=== PATIENT | male | born 1965 | race Caucasian/White ===

== ENCOUNTER 2017-04-12 10:23 | Emergency (ER) | payer OTHER, SELFPAY ==
[2017-04-12 10:50] VITALS: BP 137/86
--- NOTE | 2017-04-12 12:36 | Emergency Department Report ---
HPI - General Chief Complaint: Hyperglycemia Time Seen by Provider: 04/12/17 12:00 - HPI HPI: She is a 52-year-old male with a history of hypertension and hyperglycemia who takes medication for both. Patient presents here today stating that his blood sugars are not controlled. Patient is on on metformin 500 twice a day and insulin 30 units at night. Patient states that yesterday he took his blood glucose and it was about 300. Patient presents here today with a blood clots and blood glucose of 275. He denies chest pain, shortness of breath, nonbleeding tingling sensation of the extremities. ED Past Medical Hx - Past Medical History Hx Hypertension: Yes Hx Diabetes: Yes - Surgical History Additional Surgical History: left upper arm surgery - Social History Smoking Status: Never Smoker Substance Use Type: Alcohol - Medications Home Medications: Home Medications Medication Instructions Recorded Confirmed Last Taken Type Aspirin [Aspirin BABY CHEW TAB] 81 mg PO QDAY #30 tab.chew 12/14/15 Unknown Rx Insulin Glargine [Lantus VIAL] 10 units SUB-Q QHS 30 Days units 12/14/15 Unknown Rx Lisinopril [Zestril TAB] 5 mg PO QDAY #30 tablet 12/14/15 Unknown Rx Metoprolol [Lopressor TAB] 12.5 mg PO BID #60 tablet 12/14/15 Unknown Rx Pravastatin Sodium [Pravastatin] 40 mg PO QHS #30 tablet 12/14/15 Unknown Rx metFORMIN [Glucophage] 1,000 mg PO BID #60 tablet 12/14/15 Unknown Rx Metformin HCl 1,000 mg PO BID #40 tablet 04/12/17 Unknown Rx ED Review of Systems ROS: Stated complaint: BLOOD SUGAR HIGH Other details as noted in HPI Constitutional: denies: chills, fever Eyes: denies: eye pain, eye discharge, vision change ENT: denies: ear pain, throat pain Respiratory: denies: cough, shortness of breath, wheezing Cardiovascular: denies: chest pain, palpitations Endocrine: no symptoms reported Gastrointestinal: denies: abdominal pain, nausea, diarrhea Genitourinary: denies: urgency, dysuria Musculoskeletal: denies: back pain, joint swelling, arthralgia Skin: denies: rash, lesions Neurological: denies: headache, weakness, paresthesias Psychiatric: denies: anxiety, depression Hematological/Lymphatic: denies: easy bleeding, easy bruising Physical Exam - Physical Exam Vital Signs: Vital Signs 04/12/17 10:47 Temperature 98 F Pulse Rate 75 Respiratory 16 Rate Blood Pressure 137/86 O2 Sat by Pulse 96 Oximetry Physical Exam: GENERAL: Alert and oriented x3, no apparent distress, Normal Gait, atraumatic. HEAD: Head is normocephalic and a-traumatic. MOUTH:Mouth is well hydrated and without lesions. Tonsils nonerythematous or swollen, Uvula midline, Tongue not elevated. Mucous membranes are moist. Posterior pharynx clear, no exudate or lesions. Patent airways. LUNGS: Symetrical with respiration, No wheezing, no rales or crackles, CTAB. HEART: S1, S2 present, regular rate and rhythm without murmur, no rubs, no gallops. Non tender to palpation ABDOMEN: No organomegaly was noted,Positive bowel sounds, soft, and non- distended. . Nontender to palpation on all Quadrants, NO CVA EXTREMITIES/MUSCULOSKELETAL: No cyanosis, clubbing, rash, lesions or edema. Full ROM bilaterally. UE/LE Pulses 2+ bilaterally. LE and UE 5+ strength bilaterally, NEUROLOGIC: The patient is cooperative with no focal neurologic deficits. No loss of sensation in all extremities SKIN: Warm and dry, No lesions, No ulceration or induration present. ED Course Vital Signs 04/12/17 10:47 Temperature 98 F Pulse Rate 75 Respiratory 16 Rate Blood Pressure 137/86 O2 Sat by Pulse 96 Oximetry ED Medical Decision Making - Medical Decision Making 52-year-old male presents to uncontrolled blood glucose ED course: Fasting blood sugar is 275 in ED. Patient had no symptoms in the ED. Patient states that he is able to keep his blood pressure control with his medications but cannot keep hi blood glucose out of control. Patient states that he does monitor his diet. Discussed increasing her metformin dose to thousand milligrams twice a day. Discussed quick follow-up with the primary care physician and close monitoring of his blood glucose. I discussed with the patient to make sure he is monitoring his diet and exercising regularly which helps it also blood glucose reduction. I also discussed with patient to follow-up with his primary care physician. Patient states he is not having any symptoms in the ED today. Prior signs are normal He is in no acute or respiratory distress I discussed with the patient if he starts expressing any new symptoms or severely increasing blood glucose to return to the ED SAMANTHA Critical care attestation.: If time is entered above; I have spent that time in minutes in the direct care of this critically ill patient, excluding procedure time. ED Disposition Clinical Impression: Uncontrolled diabetes mellitus with hyperglycemia Qualifiers: Diabetes mellitus type: type 2 Diabetes mellitus termite technician insulin use: with [facility] use Qualified Code(s): E11.65 - Type 2 diabetes mellitus with hyperglycemia Disposition: TO HOME OR SELFCARE Is pt being admited?: No Does the pt Need Aspirin: No Condition: Stable Instructions: Diabetes Mellitus Type 2 in Adults (ED) Additional Instructions: Make sure to follow up with the primary care physician as discussed. Take your medications as you've been prescribed. Quantity of blood sugar 2-3 times daily and keep a log If you have any worsening symptoms or develop new symptoms please return to ED immediately. Prescriptions: Metformin HCl 1,000 mg PO BID #40 tablet Referrals: PRIMARY MD VENTURA [Primary Care Provider] - 3-5 Days ARABELLA HERR MD [Referring] - 3-5 Days [facility] [Provider Group] - 3-5 Days Forms: Work/School Release Form(ED) Time of Disposition: 12:39 Print Language: MACEDONIAN
== END 2017-04-12 13:15 | disposition home or self-care (01) ==
LOC: ED 10:23
DX: E11.65 Type 2 diabetes mellitus with hyperglycemia (principal); I10 Essential (primary) hypertension; Z79.4 Long term (current) use of insulin; Z79.84 Long term (current) use of oral hypoglycemic drugs
CPT/HCPCS: 82962; 99282

== ENCOUNTER 2017-10-29 11:16 | Inpatient (IN) | payer OTHER ==
[2017-10-29] MEDS ORDERED: NACL 0.9% 1000 ML 1,000 ML IV ONE (11:38)
[2017-10-29] MEDS ORDERED: ALUM-MAG HYDROX-SIMETH 200-200-20MG/5ML ONE (11:58)
[2017-10-29] MEDS ORDERED: LIDOCAINE VISCOUS 2% ONE (11:58)
[2017-10-29] MEDS: ALUM-MAG HYDROX-SIMETH 200-200-20MG/5ML PO ONE ×2 (12:03→14:03)
[2017-10-29] MEDS: LIDOCAINE VISCOUS 2% PO ONE ×2 (12:03→14:00)
[2017-10-29 12:19] LABS: Basophils % (Auto) 0.2 % (0.0-1.8); Hematocrit 46.9 % (35.5-45.6); Hemoglobin 16.6 gm/dl (11.8-15.2); Lymphocytes # (Auto) 1.4 K/mm3 (1.2-5.4); Lymphocytes % (Auto) 11.1 % (13.4-35.0); Mean Corpuscular HGB Conc 35 % (32-34); Mean Corpuscular Hemoglobin 31 pg (28-32); Mean Corpuscular Volume 86 fl (84-94); Monocytes # (Auto) 0.3 K/mm3 (0.0-0.8); Monocytes % (Auto) 2.7 % (0.0-7.3); Platelet Count 216 K/mm3 (140-440); Red Blood Count 5.42 M/mm3 (3.65-5.03); Red Cell Distribution Width 13.3 % (13.2-15.2)
[2017-10-29] MEDS ORDERED: PEPCID PO ONE (12:33)
[2017-10-29] MEDS ORDERED: TORADOL IM ONE (12:33)
[2017-10-29] MEDS ORDERED: BENTYL IM ONE (12:33)
[2017-10-29] MEDS ORDERED: ZOFRAN ODT PO ONE (12:33)
--- NOTE | 2017-10-29 12:36 | Emergency Department Report ---
Blank Doc - Documentation Documentation: Patient is a 52-year-old male who is complaining of epigastric pain. Patient states is some mild radiation to his back. He's had several episodes of nausea vomiting and had diarrhea last night the diarrhea has resolved. Patient denies any fever. Patient states this has not happened in the past. On focused physical exam patient has epigastric tenderness on palpation. Abdomen is otherwise soft with normal bowel sounds. The patient had laboratory studies drawn an ultrasound be done to rule out cholecystitis
[2017-10-29 12:44] LABS: Alanine Aminotransferase 134 units/L (7-56); Albumin 4.6 g/dL (3.9-5); BUN/Creatinine Ratio 20; Blood Urea Nitrogen 12 mg/dL (9-20); Calcium 10.4 mg/dL (8.4-10.2); Hemolysis Index 3; Lipase 18 units/L (13-60)
--- NOTE | 2017-10-29 13:39 | Emergency Department Report ---
ED Abdominal Pain HPI - General Chief Complaint: Abdominal Pain Stated Complaint: ABD PAIN Time Seen by Provider: 10/29/17 12:25 Source: patient, family Mode of arrival: Ambulatory Limitations: No Limitations - History of Present Illness Initial Comments: Patient is a 52-year-old male who is complaining of epigastric pain. Patient states is some mild radiation to his back. He's had several episodes of nausea vomiting and had diarrhea last night the diarrhea has resolved. Patient denies any fever. Patient states this has not happened in the past. No alleviating or exacerbating factors. No medication taken. MD Complaint: abdominal pain -: Last night Location: epigastric (midsternal chest pain) Radiation: back Migration to: no migration Severity: severe Severity scale (0 -10): 10 Consistency: constant (1 right anterior) Improves With: nothing Worsens With: vomiting Context: other (unsure) Associated Symptoms: nausea, vomiting Treatments Prior to Arrival: other - Related Data Previous Rx's Medication Instructions Recorded Last Taken Type Aspirin [Aspirin BABY CHEW TAB] 81 mg PO QDAY #30 tab.chew 12/14/15 Unknown Rx Insulin Glargine [Lantus VIAL] 10 units SUB-Q QHS 30 Days units 12/14/15 Unknown Rx Lisinopril [Zestril TAB] 5 mg PO QDAY #30 tablet 12/14/15 Unknown Rx Metoprolol [Lopressor TAB] 12.5 mg PO BID #60 tablet 12/14/15 Unknown Rx Pravastatin Sodium [Pravastatin] 40 mg PO QHS #30 tablet 12/14/15 Unknown Rx metFORMIN [Glucophage] 1,000 mg PO BID #60 tablet 12/14/15 Unknown Rx Metformin HCl 1,000 mg PO BID #40 tablet 04/12/17 Unknown Rx Allergies Allergy/AdvReac Type Severity Reaction Status Date / Time No Known Allergies Allergy Verified 04/12/17 10:47 ED Review of Systems ROS: Stated complaint: ABD PAIN Other details as noted in HPI Constitutional: denies: chills, fever Eyes: denies: eye pain, eye discharge ENT: denies: ear pain, throat pain, epistaxis, congestion Respiratory: denies: cough, shortness of breath, SOB with exertion, SOB at rest , stridor, wheezing Cardiovascular: denies: chest pain, palpitations, dyspnea on exertion, edema, syncope, paroxysmal nocturnal dyspnea Gastrointestinal: nausea, vomiting, diarrhea. denies: abdominal pain, hematemesis, hematochezia Genitourinary: denies: urgency, dysuria, frequency, hematuria Musculoskeletal: denies: back pain, joint swelling, arthralgia, myalgia Skin: denies: rash, lesions Neurological: denies: headache, weakness, numbness, paresthesias, confusion, abnormal gait, vertigo ED Past Medical Hx - Past Medical History Previous Medical History?: Yes Hx Hypertension: Yes Hx Diabetes: Yes - Surgical History Additional Surgical History: left upper arm surgery - Family History Family history: hypertension - Social History Smoking Status: Never Smoker Substance Use Type: Alcohol - Medications Home Medications: Home Medications Medication Instructions Recorded Confirmed Last Taken Type Aspirin [Aspirin BABY CHEW TAB] 81 mg PO QDAY #30 tab.chew 12/14/15 Unknown Rx Insulin Glargine [Lantus VIAL] 10 units SUB-Q QHS 30 Days units 12/14/15 Unknown Rx Lisinopril [Zestril TAB] 5 mg PO QDAY #30 tablet 12/14/15 Unknown Rx Metoprolol [Lopressor TAB] 12.5 mg PO BID #60 tablet 12/14/15 Unknown Rx Pravastatin Sodium [Pravastatin] 40 mg PO QHS #30 tablet 12/14/15 Unknown Rx metFORMIN [Glucophage] 1,000 mg PO BID #60 tablet 12/14/15 Unknown Rx Metformin HCl 1,000 mg PO BID #40 tablet 04/12/17 Unknown Rx ED Physical Exam - General Limitations: No Limitations General appearance: alert, obese, other (appear sick) - Head Head exam: Present: atraumatic, normocephalic, normal inspection - Eye Eye exam: Present: normal appearance, PERRL, EOMI Pupils: Present: normal accommodation - ENT ENT exam: Present: normal exam, normal orophraynx, mucous membranes moist, TM's normal bilaterally, normal external ear exam - Neck Neck exam: Present: normal inspection, full ROM. Absent: tenderness, lymphadenopathy - Respiratory Respiratory exam: Present: normal lung sounds bilaterally. Absent: respiratory distress, chest wall tenderness - Cardiovascular Cardiovascular Exam: Present: regular rate, normal rhythm, normal heart sounds. Absent: systolic murmur, diastolic murmur - GI/Abdominal GI/Abdominal exam: Present: soft, tenderness (epigastric area), guarding, normal bowel sounds. Absent: distended, rebound, rigid, organomegaly, mass, bruit, pulsatile mass, hernia - Extremities Exam Extremities exam: Present: normal inspection, full ROM, normal capillary refill. Absent: tenderness, pedal edema, joint swelling, calf tenderness - Back Exam Back exam: Present: normal inspection, full ROM, other (embolus without any difficulties). Absent: tenderness, CVA tenderness (R), CVA tenderness (L), muscle spasm, paraspinal tenderness, vertebral tenderness, rash noted - Neurological Exam Neurological exam: Present: alert, oriented X3, normal gait, reflexes normal. Absent: motor sensory deficit - Psychiatric Psychiatric exam: Present: normal affect, normal mood - Skin Skin exam: Present: warm, dry, intact, normal color. Absent: rash ED Course Vital Signs 10/29/17 10/29/17 11:33 14:02 Temperature 97.9 F Pulse Rate 87 Respiratory 20 18 Rate Blood Pressure 153/82 O2 Sat by Pulse 96 Oximetry - Reevaluation(s) Reevaluation #1: 10/29/17 13:14 Patient receive Maalox 30 mL, Bentyl 20 mg IM, Pepcid 40 mg by mouth, Toradol 60 mg IM, lidocaine 50 mils by mouth, Zofran 4 mg by mouth for epigastric pain in nausea. Normal saline IV fluids 1 L. Pain is better per patient. Abdominal assessment patient with minimal tenderness epigastric area. He denies any back pain or chest pain at present. EKG sinus rhythm at 66 bpm Reevaluation #2: 10/29/17 16:06 Patient with abnormal lab work to include bilirubin which is 4 and ultrasound complete abdomen shows patient with gallstones with high probability of, and bile duct blockage. I consulted Dr. Aguilar who is general surgery on-call today. I gave a report of CT and also patient lab reports and he wants hospitalist to admit patient. He gave me orders which were placed. Patient remained stable with minimal tenderness epigastric area. He is feeling better I updated on plans for admission due to abnormal labs and that his CT scan shows that he has gallbladder disease with possible blockage and he voiced understanding. Reevaluation #3: 10/29/17 16:[address] Dietrich as was the surgeon and Dr. Lynne also saw patient and plans to admit patient to surgical floor. Normal saline started at 125 mL an hour and patient is npo. [place] [facility]. She remained stable. He is alert and said he feels better. No nausea present. Started on Levaquin 750 mg IV. - Consultations Consultation #1: 10/29/17 16:53 Dietrich surgery and [place] [facility] ED Medical Decision Making - Lab Data Result diagrams: 10/29/17 12:07 10/29/17 12:07 Lab Results 10/29/17 10/29/17 Range/Units 12:07 12:07 WBC 12.4 H (4.5-11.0) K/mm3 RBC 5.42 H (3.65-5.03) M/mm3 Hgb 16.6 H (11.8-15.2) gm/dl Hct 46.9 H (35.5-45.6) % MCV 86 (84-94) fl MCH 31 (28-32) pg MCHC 35 H (32-34) % RDW 13.3 (13.2-15.2) % Plt Count 216 (140-440) K/mm3 Lymph % (Auto) 11.1 L (13.4-35.0) % Terrell % (Auto) 2.7 (0.0-7.3) % Eos % (Auto) 0.0 (0.0-4.3) % Baso % (Auto) 0.2 (0.0-1.8) % Lymph # 1.4 (1.2-5.4) K/mm3 Terrell # 0.3 (0.0-0.8) K/mm3 Eos # 0.0 (0.0-0.4) K/mm3 Baso # 0.0 (0.0-0.1) K/mm3 Seg Neutrophils % 86.0 H (40.0-70.0) % Seg Neutrophils # 10.7 H (1.8-7.7) K/mm3 Sodium 136 L (137-145) mmol/L Potassium 4.1 (3.6-5.0) mmol/L Chloride 91.9 L (98-107) mmol/L Carbon Dioxide 29 (22-30) mmol/L Anion Gap 19 mmol/L BUN 12 (9-20) mg/dL Creatinine 0.6 L (0.8-1.5) mg/dL Estimated GFR > 60 ml/min BUN/Creatinine Ratio 20 % Glucose 330 H (75-100) mg/dL Calcium 10.4 H (8.4-10.2) mg/dL Total Bilirubin 4.00 H (0.1-1.2) mg/dL AST 147 H (5-40) units/L ALT 134 H (7-56) units/L Alkaline Phosphatase 82 (35-129) units/L Troponin T < 0.010 (0.00-0.029) ng/mL Total Protein 8.3 H (6.3-8.2) g/dL Albumin 4.6 (3.9-5) g/dL Albumin/Globulin Ratio 1.2 % Lipase 18 (13-60) units/L - Radiology Data Radiology results: report reviewed Ultrasound abdomen complete dictated by radiologist's report reviewed by myself. Please see details below. Patient: PRESTON MODI MR#: [id number] : 1965 Acct:[id number] Age/Sex: 52 / M ADM Date: 10/29/17 Loc: ED Attending Dr: Ordering Physician: SHERRI DUFF MD Date of Service: 10/29/17 Procedure(s): US abdomen complete Accession Number(s): [id number] cc: SHERRI DUFF MD FINAL REPORT EXAM: US ABDOMEN COMPLETE HISTORY: epigastric pain with NV TECHNIQUE: Sonography of the abdomen performed. PRIORS: None. FINDINGS: The liver is echogenic in attenuating which is suspicious for fatty infiltration. The proximal CBD is borderline enlarged for age measuring 6 mm. There is no intrahepatic biliary dilatation seen. There are multiple echogenicities in the gallbladder with posterior shadowing. This is consistent with cholelithiasis. There is no wall thickening or pericholecystic fluid seen. Pancreas is mostly obscured by bowel gas. There is limited visualization of the spleen and left kidney due to patient's limited mobility. Grossly there is no splenomegaly or hydronephrosis. Right kidney measures 10.9 cm length. Left kidney measures 13.8 cm. IMPRESSION: Somewhat limited exam due to patient's immobility, pain and bowel gas. There is cholelithiasis. Proximal CBD is borderline size for patient's age. Clinically correlate to exclude biliary obstruction. Suspect fatty infiltration of the liver. Transcribed By: ESPERANZA Dictated By: ALVINA TRENT MD Electronically Authenticated By: ALVINA TRENT MD Signed Date/Time: 10/29/171422 DD/ 22 TD/TT: 10/29/171422 - Medical Decision Making This is a 52-year-old male here reports that he is having nausea vomiting diarrhea and also upper abdominal pain started last night. Diarrhea has resolved last night. But still with abdominal pain and nausea. Patient was screened by Dr. Duff and orders placed. Labs: CBC and CMP with abnormal values to include bilirubin at 4. Troponin. Liver enzymes are elevated, lipase is normal. White count slightly elevated with slight shift to the left. PT/PTT stable. Please refer to laboratory section for details on laboratory results. Diagnostics: Ultrasound abdomen complete shows: cholelithiasis. Proximal CBD is borderline size for patient's age. Clinically correlate to exclude biliary obstruction. Patient's bilirubin is elevated, abdomen tender to palpate epigastric area and patient looks sick. Referred to radiology section for details on ultrasound report. Assessment/plan 1: Abdominal pain, epigastric. 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 2: Atypical chest pain-EKG is stable and troponin is normal. Better 3-nausea vomiting and diarrhea-better. Patient had no diarrhea since last night but he was given Zofran 4 mg by mouth for relief of nausea. She received normal saline 1 L. Patient started on IV fluid normal saline 1 25 mL an hour. 4: Gallstones with high suspicion for, bile duct blockage-patient was tenderness to palpate epigastric area, he looks ill with elevated liver enzymes and elevated bilirubin. Ultrasound reports noted. Please see above reported. Patient started on Levaquin 750 mg IV per general surgeon. [place] nothing by mouth for surgery tomorrow I collaborated with Dr. Duff and it was decided by general surgeon Dr. Dietrich the patient will be admitted, Dr. castro accepted admission and patient aware of admission plans and updated on laboratory results and ultrasound results. He is stable and is in no pain at present. Nausea has relieved that he has not any diarrhea since he has been in emergency room. Patient is awaiting transfer to surgical floor. . - Differential Diagnosis GBD,Pancreatitis, liver DZ, abdominal mass, PUD, gastritis Critical care attestation.: If time is entered above; I have spent that time in minutes in the direct care of this critically ill patient, excluding procedure time. ED Disposition Clinical Impression: Atypical chest pain, Nausea vomiting and diarrhea Cholelithiases Qualifiers: Cholelithiasis location: gallbladder and bile duct Cholecystitis presence: with cholecystitis Cholecystitis acuity: unspecified acuity Biliary obstruction : with biliary obstruction Qualified Code(s): K80.61 - Calculus of gallbladder and bile duct with cholecystitis, unspecified, with obstruction Abdominal pain Qualifiers: Abdominal location: epigastric Qualified Code(s): R10.13 - Epigastric pain Disposition: OP ADMIT IP TO THIS HOSP Is pt being admited?: Yes Does the pt Need Aspirin: No Condition: Stable
[2017-10-29] MEDS ORDERED: NACL 0.9% 1000 ML 1,000 ML ONE ×2 (13:53→17:26)
--- NOTE | 2017-10-29 14:25 | Ultrasound Report ---
FINAL REPORT EXAM: US ABDOMEN COMPLETE HISTORY: epigastric pain with NV TECHNIQUE: Sonography of the abdomen performed. PRIORS: None. FINDINGS: The liver is echogenic in attenuating which is suspicious for fatty infiltration. The proximal CBD is borderline enlarged for age measuring 6 mm. There is no intrahepatic biliary dilatation seen. There are multiple echogenicities in the gallbladder with posterior shadowing. This is consistent with cholelithiasis. There is no wall thickening or pericholecystic fluid seen. Pancreas is mostly obscured by bowel gas. There is limited visualization of the spleen and left kidney due to patient's limited mobility. Grossly there is no splenomegaly or hydronephrosis. Right kidney measures 10.9 cm length. Left kidney measures 13.8 cm. IMPRESSION: Somewhat limited exam due to patient's immobility, pain and bowel gas. There is cholelithiasis. Proximal CBD is borderline size for patient's age. Clinically correlate to exclude biliary obstruction. Suspect fatty infiltration of the liver. .
[2017-10-29] MEDS ORDERED: NACL 0.9% 1000 ML 1,000 ML IV SCH (15:00)
[2017-10-29 15:40] LABS: INR 0.93 (0.87-1.13); Partial Thromboplastin Time 26.1 Sec. (24.2-36.6)
[2017-10-29] MEDS: LEVAQUIN 750MG/150ML 750 MG/150 ML BAG IV SCH ×2 (15:49→23:23)
--- NOTE | 2017-10-29 16:19 | Progress Note ---
Assessment and Plan Full consult dictated 52 y/o obese male. epig pain vomiting GB + stones. borderline dilated CBD 6 mm T [place] - 4.0 imp r/o cholecystitis r/o choledocolitihiasis with CBD obst. rec keep npo IV Levaquin MRCP GI eval willl follow. Selected Entries 10/29/17 10/29/17 11:33 14:02 Temperature 97.9 F Pulse Rate 87 Respiratory 18 Rate Blood Pressure 153/82 Laboratory Tests 10/29/17 10/29/17 10/29/17 12:07 12:07 15:16 WBC 12.4 H Hgb 16.6 H Hct 46.9 H PT 13.0 INR 0.93 APTT 26.1 Sodium 136 L Potassium 4.1 Chloride 91.9 L Glucose 330 H Calcium 10.4 H Total Bilirubin 4.00 H AST 147 H ALT 134 H Lipase 18 Objective Vital Signs - 12hr 10/29/17 10/29/17 11:33 14:02 Temperature 97.9 F Pulse Rate 87 Respiratory 20 18 Rate Blood Pressure 153/82 O2 Sat by Pulse 96 Oximetry - Labs 10/29/17 12:07 10/29/17 12:07 Diabetes panel 10/29/17 Range/Units 12:07 Sodium 136 L (137-145) mmol/L Potassium 4.1 (3.6-5.0) mmol/L Chloride 91.9 L (98-107) mmol/L Carbon Dioxide 29 (22-30) mmol/L BUN 12 (9-20) mg/dL Creatinine 0.6 L (0.8-1.5) mg/dL Glucose 330 H (75-100) mg/dL Calcium 10.4 H (8.4-10.2) mg/dL AST 147 H (5-40) units/L ALT 134 H (7-56) units/L Alkaline Phosphatase 82 (35-129) units/L Total Protein 8.3 H (6.3-8.2) g/dL Albumin 4.6 (3.9-5) g/dL Calcium panel 10/29/17 Range/Units 12:07 Calcium 10.4 H (8.4-10.2) mg/dL Albumin 4.6 (3.9-5) g/dL Pituitary panel 10/29/17 Range/Units 12:07 Sodium 136 L (137-145) mmol/L Potassium 4.1 (3.6-5.0) mmol/L Chloride 91.9 L (98-107) mmol/L Carbon Dioxide 29 (22-30) mmol/L BUN 12 (9-20) mg/dL Creatinine 0.6 L (0.8-1.5) mg/dL Glucose 330 H (75-100) mg/dL Calcium 10.4 H (8.4-10.2) mg/dL Adrenal panel 10/29/17 Range/Units 12:07 Sodium 136 L (137-145) mmol/L Potassium 4.1 (3.6-5.0) mmol/L Chloride 91.9 L (98-107) mmol/L Carbon Dioxide 29 (22-30) mmol/L BUN 12 (9-20) mg/dL Creatinine 0.6 L (0.8-1.5) mg/dL Glucose 330 H (75-100) mg/dL Calcium 10.4 H (8.4-10.2) mg/dL Total Bilirubin 4.00 H (0.1-1.2) mg/dL AST 147 H (5-40) units/L ALT 134 H (7-56) units/L Alkaline Phosphatase 82 (35-129) units/L Total Protein 8.3 H (6.3-8.2) g/dL Albumin 4.6 (3.9-5) g/dL
--- NOTE | 2017-10-29 21:06 | History and Physical Report ---
History of Present Illness Date of examination: 10/29/17 Date of admission: 10/29/17 16:01 Chief complaint: Chief complaint: Epigastric and right upper quadrant pain History of present illness: History of Present Illness: 52-year-old male with history of insulin-dependent diabetes hypertension and hyperlipidemia comes in for epigastric pain with radiation to the back. Has been having nausea and vomiting for the last 3 days. Pain is about 10 on a scale of 1-10. Sharp in nature. Exacerbated by eating. Relieved by not eating. No fever or chills. Pain radiating to the back. Never had pain in the epigastric region before these 3 days. Past Medical History Previous Medical History?: Yes Hx Hypertension: Yes Hx Diabetes: Yes HLD Surgical History Additional Surgical History: left upper arm surgery Family History Family history: hypertension Social History Smoking Status: Never Smoker Substance Use Type: Alcohol - Medications Home Medications: Home Medications Medication Instructions Recorded Confirmed Last Taken Type Aspirin [Aspirin BABY CHEW TAB] 81 mg PO QDAY #30 tab.chew 12/14/15 Unknown Rx Insulin Glargine [Lantus VIAL] 10 units SUB-Q QHS 30 Days units 12/14/15 Unknown Rx Lisinopril [Zestril TAB] 5 mg PO QDAY #30 tablet 12/14/15 Unknown Rx Metoprolol [Lopressor TAB] 12.5 mg PO BID #60 tablet 12/14/15 Unknown Rx Pravastatin Sodium [Pravastatin] 40 mg PO QHS #30 tablet 12/14/15 Unknown Rx metFORMIN [Glucophage] 1,000 mg PO BID #60 tablet 12/14/15 Unknown Rx Metformin HCl 1,000 mg PO BID #40 tablet 04/12/17 Unknown Rx Review of Systems ROS: Stated complaint: ABD PAIN Other details as noted in HPI Constitutional: denies: chills, fever Eyes: denies: eye pain, eye discharge ENT: denies: ear pain, throat pain, epistaxis, congestion Respiratory: denies: cough, shortness of breath, SOB with exertion, SOB at rest , stridor, wheezing Cardiovascular: denies: chest pain, palpitations, dyspnea on exertion, edema, syncope, paroxysmal nocturnal dyspnea Gastrointestinal: nausea, vomiting, diarrhea. denies: abdominal pain, hematemesis, hematochezia Genitourinary: denies: urgency, dysuria, frequency, hematuria Musculoskeletal: denies: back pain, joint swelling, arthralgia, myalgia Skin: denies: rash, lesions Neurological: denies: headache, weakness, numbness, paresthesias, confusion, abnormal gait, vertigo 14 point review of systems done--otherwise negative Medications and Allergies Allergies Allergy/AdvReac Type Severity Reaction Status Date / Time No Known Allergies Allergy Verified 04/12/17 10:47 Home Medications Medication Instructions Recorded Confirmed Last Taken Type Aspirin [Aspirin BABY CHEW TAB] 81 mg PO QDAY #30 tab.chew 12/14/15 Unknown Rx Insulin Glargine [Lantus VIAL] 10 units SUB-Q QHS 30 Days units 12/14/15 Unknown Rx Lisinopril [Zestril TAB] 5 mg PO QDAY #30 tablet 12/14/15 Unknown Rx Metoprolol [Lopressor TAB] 12.5 mg PO BID #60 tablet 12/14/15 Unknown Rx Pravastatin Sodium [Pravastatin] 40 mg PO QHS #30 tablet 12/14/15 Unknown Rx metFORMIN [Glucophage] 1,000 mg PO BID #60 tablet 12/14/15 Unknown Rx Metformin HCl 1,000 mg PO BID #40 tablet 04/12/17 Unknown Rx Active Meds: Active Medications Levofloxacin/Dextrose (Levaquin 750mg/150ml) 750 mg in 150 mls @ 100 mls/hr IV Q24HR STACEY; Protocol Last Admin: 10/29/17 15:49 Dose: 100 mls/hr Sodium Chloride (Nacl 0.9% 1000 Ml) 1,000 mls @ 125 mls/hr IV DIRECT STACEY Last Admin: 10/29/17 17:31 Dose: 125 mls/hr Exam - Physical Exam Narrative exam: Lying in chair in moderate discomfort - Constitutional Vitals: Temp Pulse Resp BP Pulse Ox 97.9 F 89 18 152/77 98 10/29/17 11:33 10/29/17 16:56 10/29/17 17:35 10/29/17 16:56 10/29/17 17:35 General appearance: Present: mild distress, well-nourished - EENT Eyes: Present: PERRL ENT: hearing intact, clear oral mucosa - Neck Neck: Present: supple, normal ROM - Respiratory Respiratory effort: normal Respiratory: bilateral: CTA - Cardiovascular Heart rate: 66 Rhythm: regular Heart Sounds: Present: S1 & S2. Absent: rub, click - Extremities Extremities: pulses symmetrical, No edema Peripheral Pulses: within normal limits - Abdominal General gastrointestinal: Present: soft, non-tender, non-distended, normal bowel sounds Localized gastrointestinal: tender: RUQ, epigastric periumbilical, guarding: RUQ , epigastric periumbilical Male genitourinary: Present: normal - Rectal Rectal Exam: deferred - Integumentary Integumentary: Present: clear, warm, dry - Musculoskeletal Musculoskeletal: gait normal, strength equal bilaterally - Psychiatric Psychiatric: appropriate mood/affect, intact judgment & insight - Neurologic Neurologic: CNII-XII intact, moves all extremities - Allied Health Allied health notes reviewed: nursing, case management Results - Labs CBC & Chem 7: 10/29/17 12:07 10/29/17 12:07 Labs: Laboratory Last Values WBC 12.4 K/mm3 (4.5-11.0) H 10/29/17 12:07 RBC 5.42 M/mm3 (3.65-5.03) H 10/29/17 12:07 Hgb 16.6 gm/dl (11.8-15.2) H 10/29/17 12:07 Hct 46.9 % (35.5-45.6) H 10/29/17 12:07 MCV 86 fl (84-94) 10/29/17 12:07 MCH 31 pg (28-32) 10/29/17 12:07 MCHC 35 % (32-34) H 10/29/17 12:07 RDW 13.3 % (13.2-15.2) 10/29/17 12:07 Plt Count 216 K/mm3 (140-440) 10/29/17 12:07 Lymph % (Auto) 11.1 % (13.4-35.0) L 10/29/17 12:07 Yell % (Auto) 2.7 % (0.0-7.3) 10/29/17 12:07 Eos % (Auto) 0.0 % (0.0-4.3) 10/29/17 12:07 Baso % (Auto) 0.2 % (0.0-1.8) 10/29/17 12:07 Lymph # 1.4 K/mm3 (1.2-5.4) 10/29/17 12:07 Yell # 0.3 K/mm3 (0.0-0.8) 10/29/17 12:07 Eos # 0.0 K/mm3 (0.0-0.4) 10/29/17 12:07 Baso # 0.0 K/mm3 (0.0-0.1) 10/29/17 12:07 Seg Neutrophils % 86.0 % (40.0-70.0) H 10/29/17 12:07 Seg Neutrophils # 10.7 K/mm3 (1.8-7.7) H 10/29/17 12:07 PT 13.0 Sec. (12.2-14.9) 10/29/17 15:16 INR 0.93 (0.87-1.13) 10/29/17 15:16 APTT 26.1 Sec. (24.2-36.6) 10/29/17 15:16 Sodium 136 mmol/L (137-145) L 10/29/17 12:07 Potassium 4.1 mmol/L (3.6-5.0) 10/29/17 12:07 Chloride 91.9 mmol/L (98-107) L 10/29/17 12:07 Carbon Dioxide 29 mmol/L (22-30) 10/29/17 12:07 Anion Gap 19 mmol/L 10/29/17 12:07 BUN 12 mg/dL (9-20) 10/29/17 12:07 Creatinine 0.6 mg/dL (0.8-1.5) L 10/29/17 12:07 Estimated GFR > 60 ml/min 10/29/17 12:07 BUN/Creatinine Ratio 20 % 10/29/17 12:07 Glucose 330 mg/dL (75-100) H 10/29/17 12:07 Calcium 10.4 mg/dL (8.4-10.2) H 10/29/17 12:07 Total Bilirubin 4.00 mg/dL (0.1-1.2) H 10/29/17 12:07 AST 147 units/L (5-40) H 10/29/17 12:07 ALT 134 units/L (7-56) H 10/29/17 12:07 Alkaline Phosphatase 82 units/L (35-129) 10/29/17 12:07 Troponin T < 0.010 ng/mL (0.00-0.029) 10/29/17 12:07 Total Protein 8.3 g/dL (6.3-8.2) H 10/29/17 12:07 Albumin 4.6 g/dL (3.9-5) 10/29/17 12:07 Albumin/Globulin Ratio 1.2 % 10/29/17 12:07 Lipase 18 units/L (13-60) 10/29/17 12:07 Short CBC 10/29/17 Range/Units 12:07 WBC 12.4 H (4.5-11.0) K/mm3 Hgb 16.6 H (11.8-15.2) gm/dl Hct 46.9 H (35.5-45.6) % Plt Count 216 (140-440) K/mm3 BMP 10/29/17 12:07 Sodium 136 L Potassium 4.1 Chloride 91.9 L Carbon Dioxide 29 BUN 12 Creatinine 0.6 L Glucose 330 H Calcium 10.4 H Cardiac Enzymes 10/29/17 Range/Units 12:07 Troponin T < 0.010 (0.00-0.029) ng/mL Liver Function 10/29/17 Range/Units 12:07 Total Bilirubin 4.00 H (0.1-1.2) mg/dL AST 147 H (5-40) units/L ALT 134 H (7-56) units/L Alkaline Phosphatase 82 (35-129) units/L Albumin 4.6 (3.9-5) g/dL - Imaging and Cardiology EKG: report reviewed (normal sinus rhythm heart rate of 66/m) Imaging and Cardiology: Ultrasound abdomen IMPRESSION: Somewhat limited exam due to patient's immobility, pain and bowel gas. There is cholelithiasis. Proximal CBD is borderline size for patient's age. Clinically correlate to exclude biliary obstruction. Suspect fatty infiltration of the liver. . Assessment and Plan Advance Directives: Yes VTE prophylaxis?: Chemical Plan of care discussed with patient/family: Yes - Patient Problems (1) Cholelithiases Current Visit: Yes Status: Acute Qualifiers: Cholelithiasis location: gallbladder and bile duct Cholecystitis presence: with cholecystitis Cholecystitis acuity: unspecified acuity Biliary obstruction: with biliary obstruction Qualified Code(s): K80.61 - Calculus of gallbladder and bile duct with cholecystitis, unspecified, with obstruction Plan to address problem: There maybe CBD obstruction Patient has a high bilirubin and transaminitis We will get MRCP Surgery consult requested IV Zosyn started (2) Transaminitis Current Visit: Yes Status: Acute Plan to address problem: Possible hepatitis or Obstruction secondary to cholelithiasis (3) T2DM (type 2 diabetes mellitus) Current Visit: Yes Status: Chronic Qualifiers: Diabetes mellitus intermediate manager insulin use: without half-way use Plan to address problem: Accu-Cheks before meals and at bedtime and coverage Check A1c (4) Hypertension Current Visit: No Status: Chronic Qualifiers: Hypertension type: essential hypertension Qualified Code(s): I10 - Essential (primary) hypertension Plan to address problem: Catapres patch initiated (5) Hyperlipidemia Current Visit: Yes Status: Chronic Qualifiers: Hyperlipidemia type: mixed hyperlipidemia Qualified Code(s): E78.2 - Mixed hyperlipidemia Plan to address problem: Hold statins for now (6) DVT prophylaxis Current Visit: Yes Status: Acute Plan to address problem: Lovenox started GI prophylaxis initiated
[2017-10-29] MEDS ORDERED: DILAUDID IV PRN (21:24)
[2017-10-29] MEDS ORDERED: SODIUM CHLORIDE FLUSH SYRINGE 10 ML IV PRN (21:24)
[2017-10-29] MEDS ORDERED: TYLENOL PO PRN (21:24)
[2017-10-29] MEDS ORDERED: MORPHINE IV PRN (21:24)
[2017-10-29] MEDS ORDERED: ZOFRAN IV PRN (21:24)
[2017-10-29] MEDS ORDERED: CATAPRES-TTS PATCH TD SCH (22:00)
[2017-10-29] MEDS: ZOSYN/NS 4.5GM/100ML 4.5 GM/100 ML VIAL IV SCH (22:05)
[2017-10-29] MEDS: PEPCID IV SCH (22:10)
[2017-10-29] MEDS: SODIUM CHLORIDE FLUSH SYRINGE 10 ML IV SCH (22:13)
[2017-10-29] MEDS: LOVENOX SUB-Q SCH (23:25)
[2017-10-29] MEDS: NACL 0.9% 1000 ML 1,000 ML IV SCH (23:29)
[2017-10-30] MEDS: NACL 0.9% 1000 ML 1,000 ML IV SCH ×3 (01:27→21:10)
[2017-10-30] MEDS: HumaLOG SUB-Q SCH ×4 (01:27→16:30)
--- NOTE | 2017-10-30 02:11 | Consultation ---
REASON FOR CONSULTATION: 1. Rule out cholecystitis. 2. Rule out choledocholithiasis. HISTORY OF PRESENT ILLNESS: The patient is a 52-year-old obese gentleman, who was admitted through the Emergency Room with a chief complaint of epigastric abdominal pain accompanied by nausea and vomiting. PAST MEDICAL HISTORY: Pertinent for diabetes and hypertension. PAST SURGICAL HISTORY: Negative. ALLERGIES: No known allergies. MEDICATIONS: Include metformin and " FAMILY HISTORY: Negative. SOCIAL HISTORY: Moderate ethanol intake. Denies any smoking. REVIEW OF SYSTEMS: Noncontributory. PHYSICAL EXAMINATION: GENERAL: At this time reveals the patient to be awake, alert, and cooperative, in moderate discomfort, but no acute distress. VITAL SIGNS: Show him to be afebrile with a temperature of 97.9, blood pressure is 153/82, pulse of 87, and respirations of 20. HEENT: Pupils are equal and reactive to light and accommodation. Sclerae shows 1+ icterus. ABDOMEN: Examination of the abdomen reveals it to be obese. There is epigastric tenderness and also slight right upper quadrant tenderness. Bowel sounds are hypoactive. LABORATORY DATA: Lab work at present includes a CBC, which shows a white count of 12.4, H and H of 16 and 46. PT, INR and PTT are within normal limit. Electrolytes are also within normal limits. Glucose is 330. LFTs were elevated including an AST of 147, ALT of 134, alkaline phosphatase of 82. Total bilirubin is elevated at 4.0. Lipase is normal at 18. A gallbladder ultrasound has been performed, which reveals some gallstones. Also, there is a borderline dilated common bile duct of 6 mm. No gallbladder wall thickening or pericholecystic fluid was seen around the gallbladder. IMPRESSION: 1. At this time is that of an obese, diabetic, hypertensive male with positive cholelithiasis. Rule out cholecystitis. 2. Rule out choledocholithiasis with common bile duct obstruction. RECOMMENDATIONS: At this time is to keep the patient n.p.o. on IV fluid hydration. Start IV Levaquin. Also, we will order MRCP as well as recommend GI evaluation, possible ERCP pending MRCP findings. We will follow closely with you. Thank you very much for consultation. JOB# [id number] FP/NTS
[2017-10-30] MEDS: ZOSYN/NS 4.5GM/100ML 4.5 GM/100 ML VIAL IV SCH ×3 (05:16→21:09)
[2017-10-30 08:08] LABS: Basophils % (Auto) 0.3 % (0.0-1.8); Eosinophils % (Auto) 0.3 % (0.0-4.3); Hemoglobin 14.3 gm/dl (11.8-15.2); Lymphocytes # (Auto) 1.5 K/mm3 (1.2-5.4); Lymphocytes % (Auto) 23.2 % (13.4-35.0); Mean Corpuscular HGB Conc 36 % (32-34); Mean Corpuscular Hemoglobin 31 pg (28-32); Mean Corpuscular Volume 87 fl (84-94); Monocytes # (Auto) 0.5 K/mm3 (0.0-0.8); Monocytes % (Auto) 7.6 % (0.0-7.3); Platelet Count 176 K/mm3 (140-440); Red Blood Count 4.63 M/mm3 (3.65-5.03); Red Cell Distribution Width 13.5 % (13.2-15.2)
[2017-10-30 09:05] LABS: Alanine Aminotransferase 313 units/L (7-56); Albumin 3.8 g/dL (3.9-5); BUN/Creatinine Ratio 18; Blood Urea Nitrogen 11 mg/dL (9-20); Calcium 8.6 mg/dL (8.4-10.2); Hemolysis Index 2
[2017-10-30 09:38] LABS: Bilirubin,Urine NEG (Negative); Blood,Urine NEG (Negative); Color,Urine Amber (Yellow); Mucus,Urine FEW /HPF; Protein,Urine <15 mg/dL mg/dL (Negative); RBC,Urine < 1.0 /HPF (0.0-6.0); Urobilinogen,Urine < 2.0 mg/dL (<2.0)
[2017-10-30] MEDS: PEPCID IV SCH ×2 (10:19→21:10)
[2017-10-30] MEDS: SODIUM CHLORIDE FLUSH SYRINGE 10 ML IV SCH ×2 (10:20→21:11)
[2017-10-30] MEDS ORDERED: PNEUMOVAX 23 IM ONE (12:00)
--- NOTE | 2017-10-30 13:07 | Magnetic Resonance Report ---
MRI ABDOMEN WITH MRCP: 10/30/17 CLINICAL: Epigastric pain with nausea and vomiting. COMPARISON:Ultrasound abdomen 10/29/17 TECHNIQUE: Axial T1 in phase and opposed phase, coronal and axial T2 and axial T2 fat sat sequences plus thin and thick slab MRCP sequences on a 1.5 Miriam magnet. FINDINGS: The liver is normal size with normal contour. Mild diffuse heterogeneous signal dropout on opposed phase imaging. No liver mass or nodularity. The gallbladder is partially contracted and contains numerous calculi of varying sizes. The largest measures 1.5 cm. The color wall is thickened and measures 5 mm maximum. No pericholecystic fluid. Normal intrahepatic and extrahepatic bile ducts. The common hepatic duct measures 4 mm diameter. The MRCP sequences are normal with a normal common bile that and pancreatic duct. The pancreas is normal size with normal signal. No pancreatic mass, fluid collection or inflammatory changes. Normal stomach and duodenum. The spleen is enlarged and measures 15.2 cm in length. Normal splenic signal and no splenic mass or cyst. Normal adrenal glands. The kidneys are normal size with normal nondilated renal collecting systems and ureters. The right kidney measures 11.3 cm in length and the left kidney measures 12.7 cm in length. Mild bilateral nonspecific air nephric fluid and stranding. No ascites. The abdominal aorta and inferior vena cava are normal. Imaged portions of small bowel and colon are normal. No mass or lymphadenopathy. The bones and soft tissues are normal. IMPRESSION: 1. Cholelithiasis in a partially contracted gallbladder with mild nonspecific wall thickening. Criteria for acute cholecystitis are not met. 2. Normal biliary tract with no evidence of choledocholithiasis or obstruction. 3. Mild to moderate hepatic steatosis and no signs of hepatic cirrhosis. 4. Mild splenomegaly.
--- NOTE | 2017-10-30 13:09 | Progress Note ---
Assessment and Plan Assessment and plan: [facility] [employer] Used Patient is a 52-year-old man with a history of insulin-dependent diabetes mellitus, hypertension and hyperlipidemia who comes in for epigastric abd pains * Ultrasound abdomen IMPRESSION: Somewhat limited exam due to patient's immobility, pain and bowel gas. There is cholelithiasis. Proximal CBD is borderline size for patient's age. Clinically correlate to exclude biliary obstruction. Suspect fatty infiltration of the liver. Cholelithiasis There maybe CBD obstruction Patient has a high bilirubin and transaminitis We will get MRCP Surgery consult requested IV Zosyn started Transaminitis Possible hepatitis or Obstruction secondary to cholelithiasis T2DM (type 2 diabetes mellitus) Accu-Cheks before meals and at bedtime and coverage Check A1c Hypertension Catapres patch initiated Hyperlipidemia Hold statins for now DVT prophylaxis Lovenox started GI prophylaxis initiated History Interval history: Patient was seen and examined. Follow-up on current diagnosis of abdominal pains. Overnight uneventful. Patient denies any chest pain, shortness breath, nausea/vomiting or severe headaches. Imaging, nursing note, chart, labs and old chart reviewed. Discussed with patient. Hospitalist Physical - Physical exam Narrative exam: GEN: WDWN, NAD, Awake, Alert, Orientated x 3, bmi 37.7 HEENT: NCAT, EOMI, PERRL, OP Clear NECK: supple, no adenopathy, no thyromegaly, no JVD CVS/HEART: RRR, normal S1S2, pulses present bilaterally CHEST/LUNGS: CTA B, Symmetrical chest expansion, good air entry bilaterally GI/Abdomen: soft, nondistended, very mild epigastric tenderness, good bowel sounds, no guarding or rebound /Bladder: no suprapubic tenderness, no CVA or paraspinal tenderness EXT/Skin: no c/c/e, no obvious rash MSK: FROM x 4 Neuro: CN 2-12 grossly intact, no new focal deficits Psych: calm - Constitutional Vitals: Temp Pulse Resp BP Pulse Ox 98.4 F 63 20 123/74 91 10/30/17 11:47 10/30/17 11:47 10/30/17 11:47 10/30/17 11:47 10/30/17 11:47 General appearance: Present: well-nourished. Absent: mild distress Results - Labs CBC & Chem 7: 10/30/17 07:25 10/30/17 07:25 Labs: Laboratory Last Values WBC 6.4 K/mm3 (4.5-11.0) 10/30/17 07:25 RBC 4.63 M/mm3 (3.65-5.03) 10/30/17 07:25 Hgb 14.3 gm/dl (11.8-15.2) 10/30/17 07:25 Hct 40.0 % (35.5-45.6) D 10/30/17 07:25 MCV 87 fl (84-94) 10/30/17 07:25 MCH 31 pg (28-32) 10/30/17 07:25 MCHC 36 % (32-34) H 10/30/17 07:25 RDW 13.5 % (13.2-15.2) 10/30/17 07:25 Plt Count 176 K/mm3 (140-440) 10/30/17 07:25 Lymph % (Auto) 23.2 % (13.4-35.0) 10/30/17 07:25 [place] % (Auto) 7.6 % (0.0-7.3) H 10/30/17 07:25 Eos % (Auto) 0.3 % (0.0-4.3) 10/30/17 07:25 Baso % (Auto) 0.3 % (0.0-1.8) 10/30/17 07:25 Lymph # 1.5 K/mm3 (1.2-5.4) 10/30/17 07:25 [place] # 0.5 K/mm3 (0.0-0.8) 10/30/17 07:25 Eos # 0.0 K/mm3 (0.0-0.4) 10/30/17 07:25 Baso # 0.0 K/mm3 (0.0-0.1) 10/30/17 07:25 Seg Neutrophils % 68.6 % (40.0-70.0) 10/30/17 07:25 Seg Neutrophils # 4.4 K/mm3 (1.8-7.7) 10/30/17 07:25 PT 13.0 Sec. (12.2-14.9) 10/29/17 15:16 INR 0.93 (0.87-1.13) 10/29/17 15:16 APTT 26.1 Sec. (24.2-36.6) 10/29/17 15:16 Sodium 142 mmol/L (137-145) 10/30/17 07:25 Potassium 3.9 mmol/L (3.6-5.0) 10/30/17 07:25 Chloride 104.9 mmol/L (98-107) 10/30/17 07:25 Carbon Dioxide 23 mmol/L (22-30) 10/30/17 07:25 Anion Gap 18 mmol/L 10/30/17 07:25 BUN 11 mg/dL (9-20) 10/30/17 07:25 Creatinine 0.6 mg/dL (0.8-1.5) L 10/30/17 07:25 Estimated GFR > 60 ml/min 10/30/17 07:25 BUN/Creatinine Ratio 18 % 10/30/17 07:25 Glucose 248 mg/dL (75-100) H 10/30/17 07:25 POC Glucose 194 (70-105) H 10/30/17 11:45 Hemoglobin A1c 9.2 % (4-6) H 10/30/17 07:25 Calcium 8.6 mg/dL (8.4-10.2) D 10/30/17 07:25 Total Bilirubin 7.60 mg/dL (0.1-1.2) H 10/30/17 07:25 AST 261 units/L (5-40) H 10/30/17 07:25 ALT 313 units/L (7-56) H 10/30/17 07:25 Alkaline Phosphatase 102 units/L (35-129) 10/30/17 07:25 Troponin T < 0.010 ng/mL (0.00-0.029) 10/29/17 12:07 Total Protein 6.6 g/dL (6.3-8.2) D 10/30/17 07:25 Albumin 3.8 g/dL (3.9-5) L 10/30/17 07:25 Albumin/Globulin Ratio 1.4 % 10/30/17 07:25 Lipase 18 units/L (13-60) 10/29/17 12:07 Urine Color [place] (Yellow) 10/30/17 08:48 Urine Turbidity Clear (Clear) 10/30/17 08:48 Urine pH 5.0 (5.0-7.0) 10/30/17 08:48 Ur Specific [place] 1.019 (1.003-1.030) 10/30/17 08:48 Urine Protein <15 mg/dl mg/dL (Negative) 10/30/17 08:48 Urine Glucose (UA) 150 mg/dL (Negative) 10/30/17 08:48 Urine Ketones Tr mg/dL (Negative) 10/30/17 08:48 Urine Blood Neg (Negative) 10/30/17 08:48 Urine Nitrite Neg (Negative) 10/30/17 08:48 Urine Bilirubin Neg (Negative) 10/30/17 08:48 Urine Urobilinogen < 2.0 mg/dL (<2.0) 10/30/17 08:48 Ur Leukocyte Esterase Neg (Negative) 10/30/17 08:48 Urine WBC (Auto) 1.0 /HPF (0.0-6.0) 10/30/17 08:48 Urine RBC (Auto) < 1.0 /HPF (0.0-6.0) 10/30/17 08:48 U Epithel Cells (Auto) < 1.0 /HPF (0-13.0) 10/30/17 08:48 Urine Mucus Few /HPF 10/30/17 08:48
--- NOTE | 2017-10-30 13:57 | Progress Note ---
Assessment and Plan Pt states "feeling better" Abd soft, non tender GB US - + gallstones but no evidence of acute GB MRCP - no evidence of dilated or obst CBD however T [place] rising r/o hepatitis? await GI eval may attempt low fat cl liq diet if O.K. with GI Selected Entries 10/30/17 11:47 Temperature 98.4 F Pulse Rate 63 Respiratory 20 Rate Blood Pressure 123/74 Laboratory Tests 10/29/17 10/30/17 10/30/17 12:07 07:25 07:25 WBC 6.4 Hgb 14.3 Hct 40.0 D Glucose 248 H POC Glucose Total Bilirubin 4.00 H 7.60 H AST 261 H ALT 313 H Lipase 18 10/30/17 07:31 WBC Hgb Hct Glucose POC Glucose 239 H Total Bilirubin AST ALT Lipase Objective Vital Signs - 12hr 10/30/17 10/30/17 06:10 11:47 Temperature 98.5 F 98.4 F Pulse Rate 69 63 Respiratory 18 20 Rate Blood Pressure 117/63 123/74 O2 Sat by Pulse 91 91 Oximetry - Labs 10/30/17 07:25 10/30/17 07:25 Diabetes panel 10/30/17 10/30/17 Range/Units 07:25 07:25 Sodium 142 (137-145) mmol/L Potassium 3.9 (3.6-5.0) mmol/L Chloride 104.9 (98-107) mmol/L Carbon Dioxide 23 (22-30) mmol/L BUN 11 (9-20) mg/dL Creatinine 0.6 L (0.8-1.5) mg/dL Glucose 248 H (75-100) mg/dL Hemoglobin A1c 9.2 H (4-6) % Calcium 8.6 D (8.4-10.2) mg/dL AST 261 H (5-40) units/L ALT 313 H (7-56) units/L Alkaline Phosphatase 102 (35-129) units/L Total Protein 6.6 D (6.3-8.2) g/dL Albumin 3.8 L (3.9-5) g/dL Calcium panel 10/30/17 Range/Units 07:25 Calcium 8.6 D (8.4-10.2) mg/dL Albumin 3.8 L (3.9-5) g/dL Pituitary panel 10/30/17 Range/Units 07:25 Sodium 142 (137-145) mmol/L Potassium 3.9 (3.6-5.0) mmol/L Chloride 104.9 (98-107) mmol/L Carbon Dioxide 23 (22-30) mmol/L BUN 11 (9-20) mg/dL Creatinine 0.6 L (0.8-1.5) mg/dL Glucose 248 H (75-100) mg/dL Calcium 8.6 D (8.4-10.2) mg/dL Adrenal panel 10/30/17 Range/Units 07:25 Sodium 142 (137-145) mmol/L Potassium 3.9 (3.6-5.0) mmol/L Chloride 104.9 (98-107) mmol/L Carbon Dioxide 23 (22-30) mmol/L BUN 11 (9-20) mg/dL Creatinine 0.6 L (0.8-1.5) mg/dL Glucose 248 H (75-100) mg/dL Calcium 8.6 D (8.4-10.2) mg/dL Total Bilirubin 7.60 H (0.1-1.2) mg/dL AST 261 H (5-40) units/L ALT 313 H (7-56) units/L Alkaline Phosphatase 102 (35-129) units/L Total Protein 6.6 D (6.3-8.2) g/dL Albumin 3.8 L (3.9-5) g/dL
--- NOTE | 2017-10-30 14:12 | Gastroenterology Consultation ---
History of Present Illness - Reason for Consult Consult date: 10/30/17 elevated T.angelo Requesting physician: CLIFTON ARCINIEGA - History of Present Illness Patient is a 52 y/o male with PMH of HTN, DM, and HLD who presented to ED with c /o epigastric abd pain that radiates to his RUQ and back with associated N/V and diarrrhea which has resolved. Upon admission, he was found to have elevated LFTs. He underwent an abd U/S that showed gallstones and fatty infiltraton of the liver but no evidence of cholecystitis. Surgery following. T. angelo has continued to rise to which GI has been consulted with MRCP revealing gallstones (no evidence of acute GB) and mild to moderate hepatic steatosis (no cirrhosis) , but no choledocholithiasis. This afternoon, patient was resting in bed w/o acute distress. Reports feeling better with abd pain improved and N/V now resolved. Requesting to eat. Denies fever, wt loss, CP, SOB, signs of bleeding or LGI symptoms such as diarrhea or constipation. States he has had episodes of similar symptoms in the past but has no known hx of liver disease or Fhx of liver disease. Admits to drinking on average 6 beers/month. No hx of IV drug use. Past History Past Medical History: diabetes, hypertension, hyperlipidemia Past Surgical History: Other (left arm) Social history: other (alcohol). denies: smoking Family history: hypertension Medications and Allergies Allergies Allergy/AdvReac Type Severity Reaction Status Date / Time No Known Allergies Allergy Verified 04/12/17 10:47 Home Medications Medication Instructions Recorded Confirmed Last Taken Type Aspirin [Aspirin BABY CHEW TAB] 81 mg PO QDAY #30 tab.chew 12/14/15 Unknown Rx Insulin Glargine [Lantus VIAL] 10 units SUB-Q QHS 30 Days units 12/14/15 Unknown Rx Lisinopril [Zestril TAB] 5 mg PO QDAY #30 tablet 12/14/15 Unknown Rx Metoprolol [Lopressor TAB] 12.5 mg PO BID #60 tablet 12/14/15 Unknown Rx Pravastatin Sodium [Pravastatin] 40 mg PO QHS #30 tablet 12/14/15 Unknown Rx metFORMIN [Glucophage] 1,000 mg PO BID #60 tablet 12/14/15 Unknown Rx Metformin HCl 1,000 mg PO BID #40 tablet 04/12/17 Unknown Rx Active Meds: Active Medications Clonidine HCl (Catapres-Tts Patch) 0.2 mg TD Hammer [facility] Last Admin: 10/29/17 22:05 Dose: 0.2 mg Enoxaparin Sodium (Lovenox) 40 mg SUB-Q QDAY@2200 [facility] Last Admin: 10/29/17 23:25 Dose: 40 mg Famotidine (Pepcid) 20 mg IV BID [facility] Last Admin: 10/30/17 10:19 Dose: 20 mg Hydromorphone HCl (Dilaudid) 1 mg IV Q3H PRN PRN Reason: Pain , Severe (7-10) Piperacillin Sod/Tazobactam Sod (Zosyn/Ns 4.5gm/100ml) 4.5 gm in 100 mls @ 200 mls/hr IV Q8HR [facility]; Protocol Last Admin: 10/30/17 13:05 Dose: 200 mls/hr Sodium Chloride (Nacl 0.9% 1000 Ml) 1,000 mls @ 100 mls/hr IV DIRECT [facility] Last Admin: 10/30/17 12:10 Dose: 100 mls/hr Insulin Human Lispro (Humalog) 0 unit SUB-Q Q6HR [facility]; Protocol Last Admin: 10/30/17 12:07 Dose: 2 unit Morphine Sulfate (Morphine) 2 mg IV Q4H PRN PRN Reason: Pain, Moderate (4-6) Ondansetron HCl (Zofran) 4 mg IV Q8H PRN PRN Reason: Nausea And Vomiting Sodium Chloride (Sodium Chloride Flush Syringe 10 Ml) 10 ml IV BID [facility] Last Admin: 10/30/17 10:20 Dose: 10 ml Sodium Chloride (Sodium Chloride Flush Syringe 10 Ml) 10 ml IV PRN PRN PRN Reason: LINE FLUSH Review of Systems - Review of Systems All systems: negative Gastrointestinal: abdominal pain, nausea, vomiting Exam - Constitutional Vital Signs: Temp Pulse Resp BP Pulse Ox 98.4 F 63 20 123/74 91 10/30/17 11:47 10/30/17 11:47 10/30/17 11:47 10/30/17 11:47 10/30/17 11:47 General appearance: no acute distress, obese - Respiratory Respiratory: bilateral: CTA - Cardiovascular Rhythm: regular Heart Sounds: Present: S1 & S2 - Gastrointestinal General gastrointestinal: Present: soft, non-tender, non-distended, normal bowel sounds - Neurologic Neurological: alert and oriented x3 - Labs CBC & Chem 7: 10/30/17 07:25 10/30/17 07:25 Lab Results: Laboratory Results - last 24 hr 10/29/17 10/29/17 10/30/17 15:16 23:33 07:25 WBC 6.4 RBC 4.63 Hgb 14.3 Hct 40.0 D MCV 87 MCH 31 MCHC 36 H RDW 13.5 Plt Count 176 Lymph % (Auto) 23.2 [place] % (Auto) 7.6 H Eos % (Auto) 0.3 Baso % (Auto) 0.3 Lymph # 1.5 [place] # 0.5 Eos # 0.0 Baso # 0.0 Seg Neutrophils % 68.6 Seg Neutrophils # 4.4 PT 13.0 INR 0.93 APTT 26.1 Sodium Potassium Chloride Carbon Dioxide Anion Gap BUN Creatinine Estimated GFR BUN/Creatinine Ratio Glucose POC Glucose 151 H Hemoglobin A1c Calcium Total Bilirubin AST ALT Alkaline Phosphatase Total Protein Albumin Albumin/Globulin Ratio Urine Color Urine Turbidity Urine pH Ur Specific [place] Urine Protein Urine Glucose (UA) Urine Ketones Urine Blood Urine Nitrite Urine Bilirubin Urine Urobilinogen Ur Leukocyte Esterase Urine WBC (Auto) Urine RBC (Auto) U Epithel Cells (Auto) Urine Mucus 10/30/17 10/30/17 10/30/17 07:25 07:25 07:31 WBC RBC Hgb Hct MCV MCH MCHC RDW Plt Count Lymph % (Auto) [place] % (Auto) Eos % (Auto) Baso % (Auto) Lymph # [place] # Eos # Baso # Seg Neutrophils % Seg Neutrophils # PT INR APTT Sodium 142 Potassium 3.9 Chloride 104.9 Carbon Dioxide 23 Anion Gap 18 BUN 11 Creatinine 0.6 L Estimated GFR > 60 BUN/Creatinine Ratio 18 Glucose 248 H POC Glucose 239 H Hemoglobin A1c 9.2 H Calcium 8.6 D Total Bilirubin 7.60 H AST 261 H ALT 313 H Alkaline Phosphatase 102 Total Protein 6.6 D Albumin 3.8 L Albumin/Globulin Ratio 1.4 Urine Color Urine Turbidity Urine pH Ur Specific [place] Urine Protein Urine Glucose (UA) Urine Ketones Urine Blood Urine Nitrite Urine Bilirubin Urine Urobilinogen Ur Leukocyte Esterase Urine WBC (Auto) Urine RBC (Auto) U Epithel Cells (Auto) Urine Mucus 10/30/17 10/30/17 08:48 11:45 WBC RBC Hgb Hct MCV MCH MCHC RDW Plt Count Lymph % (Auto) [place] % (Auto) Eos % (Auto) Baso % (Auto) Lymph # [place] # Eos # Baso # Seg Neutrophils % Seg Neutrophils # PT INR APTT Sodium Potassium Chloride Carbon Dioxide Anion Gap BUN Creatinine Estimated GFR BUN/Creatinine Ratio Glucose POC Glucose 194 H Hemoglobin A1c Calcium Total Bilirubin AST ALT Alkaline Phosphatase Total Protein Albumin Albumin/Globulin Ratio Urine Color [place]is Urine Turbidity Clear Urine pH 5.0 Ur Specific [place] 1.019 Urine Protein <15 mg/dl Urine Glucose (UA) 150 Urine Ketones Tr Urine Blood Neg Urine Nitrite Neg Urine Bilirubin Neg Urine Urobilinogen < 2.0 Ur Leukocyte Esterase Neg Urine WBC (Auto) 1.0 Urine RBC (Auto) < 1.0 U Epithel Cells (Auto) < 1.0 Urine Mucus Few Assessment and Plan 1.abd pain 2.N/V 3.elevated LFTs (T.angelo rising) -afebrile -WBC 6.4-trended down -T.angelo 7.60, AST 261, ALT 313, alk phos 102 -abd US- gallstones and fatty infiltration of liver -MRCP- gallstones (no cholecystitis or choledocholithiasis) and mild to moderate hepatic steatosis (no cirrhosis) -etiology unclear- possible passed stone vs fatty liver vs other -surgery following -clinically, patient reports feeling better with abd pain improved and N/V resolved -okay to start on clear liquids -will order acute hepatitis panel and autoimmune markers to r/o other causes -continue to trend labs and supportive care -further recommendations to follow
[2017-10-30 18:51] LABS: Hepatitis B Core IgM Non-Reactive (NonReactive); Hepatitis B Surface Antigen Non-Reactive (Negative); Hepatitis C Virus Antibody Non-Reactive (NonReactive)
[2017-10-30] MEDS: LOVENOX SUB-Q SCH (21:10)
[2017-10-31] MEDS: HumaLOG SUB-Q SCH ×4 (01:18→18:07)
[2017-10-31] MEDS: ZOSYN/NS 4.5GM/100ML 4.5 GM/100 ML VIAL IV SCH ×4 (05:37→21:52)
[2017-10-31] MEDS: NACL 0.9% 1000 ML 1,000 ML IV SCH ×2 (05:39→16:32)
[2017-10-31 06:42] LABS: Hematocrit 39.2 % (35.5-45.6); Hemoglobin 13.8 gm/dl (11.8-15.2); Mean Corpuscular HGB Conc 35 % (32-34); Mean Corpuscular Hemoglobin 31 pg (28-32); Mean Corpuscular Volume 88 fl (84-94); Platelet Count 169 K/mm3 (140-440); Red Blood Count 4.46 M/mm3 (3.65-5.03); Red Cell Distribution Width 13.7 % (13.2-15.2)
[2017-10-31 06:53] LABS: INR 1.05 (0.87-1.13)
[2017-10-31 07:04] LABS: Alanine Aminotransferase 270 units/L (7-56); Albumin 3.5 g/dL (3.9-5); BUN/Creatinine Ratio 13; Blood Urea Nitrogen 8 mg/dL (9-20); Calcium 8.3 mg/dL (8.4-10.2); Hemolysis Index 3
[2017-10-31 07:10] LABS: Iron 92 ug/dL (49-181); Total Iron Binding Capacity 236 mcg/dL (250-450)
--- NOTE | 2017-10-31 09:43 | Gastroenterology Progress Note ---
Assessment and Plan 1.abd pain 2.N/V 3.elevated LFTs (T.angelo rising) -afebrile -WBC WNL -hepatitis panel negative -autoimmune markers pending -T.angelo 6.00, AST 112, ALT 270, alk phos 117-trending down -abd US- gallstones and fatty infiltration of liver -MRCP- gallstones (no cholecystitis or choledocholithiasis) and mild to moderate hepatic steatosis (no cirrhosis) -etiology- likely 2/2 passed stone vs fatty liver vs other -no plans for ERCP at this time (LFTs trending down), will consider based on progress -surgery following for possible CCY -clinically, patient is feeling better with abd pain improved. No N/V. tolerating liquids -will advance diet to GI soft -continue to trend labs, empiric antibiotics, and supportive care -will follow Subjective Date of service: 10/31/17 Principal diagnosis: elevated LFTs (rising T.angelo) Interval history: Patient resting in bed this am w/o distress. Reports mild RUQ abd pain early this am that has now resolved. No N/V. Tolerating liquids. Objective - Constitutional Vitals: Temp Pulse Resp BP Pulse Ox 97.7 F 56 L 18 128/80 94 10/31/17 05:37 10/31/17 05:37 10/31/17 05:37 10/31/17 05:37 10/31/17 05:37 General appearance: no acute distress, obese - Respiratory Respiratory: bilateral: CTA (anterior) - Cardiovascular Rhythm: regular Heart Sounds: Present: S1 & S2 - Gastrointestinal General gastrointestinal: Present: soft, tender (slight TTP in RUQ), non- distended, normal bowel sounds - Neurologic Neurological: alert and oriented x3 - Labs CBC & Chem 7: 10/31/17 05:27 10/31/17 05:27 Labs: Laboratory Results - last 24 hr 10/30/17 10/30/17 10/30/17 11:45 16:17 17:09 WBC RBC Hgb Hct MCV MCH MCHC RDW Plt Count PT INR Sodium Potassium Chloride Carbon Dioxide Anion Gap BUN Creatinine Estimated GFR BUN/Creatinine Ratio Glucose POC Glucose 194 H 185 H Calcium Iron TIBC Ferritin Total Bilirubin AST ALT Alkaline Phosphatase Total Protein Albumin Albumin/Globulin Ratio Hep Bs Antigen Non-reactive Hep B Core IgM Ab Non-reactive Hepatitis C Antibody Non-reactive 10/30/17 10/31/17 10/31/17 21:37 05:27 05:27 WBC 6.3 RBC 4.46 Hgb 13.8 Hct 39.2 MCV 88 MCH 31 MCHC 35 H RDW 13.7 Plt Count 169 PT INR Sodium 140 Potassium 3.3 L Chloride 106.2 Carbon Dioxide 24 Anion Gap 13 BUN 8 L Creatinine 0.6 L Estimated GFR > 60 BUN/Creatinine Ratio 13 Glucose 170 H POC Glucose 247 H Calcium 8.3 L Iron TIBC Ferritin Total Bilirubin 6.00 H AST 112 H ALT 270 H Alkaline Phosphatase 117 Total Protein 6.1 L Albumin 3.5 L Albumin/Globulin Ratio 1.3 Hep Bs Antigen Hep B Core IgM Ab Hepatitis C Antibody 10/31/17 10/31/17 10/31/17 05:27 05:27 05:27 WBC RBC Hgb Hct MCV MCH MCHC RDW Plt Count PT 14.3 INR 1.05 Sodium Potassium Chloride Carbon Dioxide Anion Gap BUN Creatinine Estimated GFR BUN/Creatinine Ratio Glucose POC Glucose Calcium Iron 92 TIBC 236 L Ferritin 774.0 H Total Bilirubin AST ALT Alkaline Phosphatase Total Protein Albumin Albumin/Globulin Ratio Hep Bs Antigen Hep B Core IgM Ab Hepatitis C Antibody 10/31/17 07:23 WBC RBC Hgb Hct MCV MCH MCHC RDW Plt Count PT INR Sodium Potassium Chloride Carbon Dioxide Anion Gap BUN Creatinine Estimated GFR BUN/Creatinine Ratio Glucose POC Glucose 179 H Calcium Iron TIBC Ferritin Total Bilirubin AST ALT Alkaline Phosphatase Total Protein Albumin Albumin/Globulin Ratio Hep Bs Antigen Hep B Core IgM Ab Hepatitis C Antibody
[2017-10-31] MEDS: SODIUM CHLORIDE FLUSH SYRINGE 10 ML IV SCH ×2 (09:45→21:53)
[2017-10-31] MEDS: PEPCID IV SCH (09:45)
--- NOTE | 2017-10-31 13:05 | Progress Note ---
Assessment and Plan Pt feeling well without compl. madhu liq diet Abd soft, non tender hepatitis w/u neg so far passed stone? diet being advanced as per GI repeat LFT's in am surgically stable Selected Entries 10/31/17 11:40 Temperature 98.5 F Pulse Rate 53 L Respiratory 16 Rate Blood Pressure 110/72 Laboratory Tests 10/30/17 10/31/17 07:25 05:27 Total Bilirubin 7.60 H 6.00 H AST 261 H 112 H ALT 313 H 270 H Alkaline Phosphatase 102 117 Objective Vital Signs - 12hr 10/31/17 10/31/17 05:37 11:40 Temperature 97.7 F 98.5 F Pulse Rate 56 L 53 L Respiratory 18 16 Rate Blood Pressure 128/80 110/72 O2 Sat by Pulse 94 96 Oximetry - Labs 10/31/17 05:27 10/31/17 05:27 Diabetes panel 10/31/17 Range/Units 05:27 Sodium 140 (137-145) mmol/L Potassium 3.3 L (3.6-5.0) mmol/L Chloride 106.2 (98-107) mmol/L Carbon Dioxide 24 (22-30) mmol/L BUN 8 L (9-20) mg/dL Creatinine 0.6 L (0.8-1.5) mg/dL Glucose 170 H (75-100) mg/dL Calcium 8.3 L (8.4-10.2) mg/dL AST 112 H (5-40) units/L ALT 270 H (7-56) units/L Alkaline Phosphatase 117 (35-129) units/L Total Protein 6.1 L (6.3-8.2) g/dL Albumin 3.5 L (3.9-5) g/dL Calcium panel 10/31/17 Range/Units 05:27 Calcium 8.3 L (8.4-10.2) mg/dL Albumin 3.5 L (3.9-5) g/dL Pituitary panel 10/31/17 Range/Units 05:27 Sodium 140 (137-145) mmol/L Potassium 3.3 L (3.6-5.0) mmol/L Chloride 106.2 (98-107) mmol/L Carbon Dioxide 24 (22-30) mmol/L BUN 8 L (9-20) mg/dL Creatinine 0.6 L (0.8-1.5) mg/dL Glucose 170 H (75-100) mg/dL Calcium 8.3 L (8.4-10.2) mg/dL Adrenal panel 10/31/17 Range/Units 05:27 Sodium 140 (137-145) mmol/L Potassium 3.3 L (3.6-5.0) mmol/L Chloride 106.2 (98-107) mmol/L Carbon Dioxide 24 (22-30) mmol/L BUN 8 L (9-20) mg/dL Creatinine 0.6 L (0.8-1.5) mg/dL Glucose 170 H (75-100) mg/dL Calcium 8.3 L (8.4-10.2) mg/dL Total Bilirubin 6.00 H (0.1-1.2) mg/dL AST 112 H (5-40) units/L ALT 270 H (7-56) units/L Alkaline Phosphatase 117 (35-129) units/L Total Protein 6.1 L (6.3-8.2) g/dL Albumin 3.5 L (3.9-5) g/dL
--- NOTE | 2017-10-31 17:05 | Progress Note ---
Assessment and Plan Assessment and plan: MRCP 1. Cholelithiasis in a partially contracted gallbladder with mild nonspecific wall thickening. Criteria for acute cholecystitis are not met. 2. Normal biliary tract with no evidence of choledocholithiasis or obstruction. 3. Mild to moderate hepatic steatosis and no signs of hepatic cirrhosis. 4. Mild splenomegaly. [facility] [employer] Used Patient is a 52-year-old man with a history of insulin-dependent diabetes mellitus, hypertension and hyperlipidemia who comes in for epigastric abd pains * Ultrasound abdomen IMPRESSION: Somewhat limited exam due to patient's immobility, pain and bowel gas. There is cholelithiasis. Proximal CBD is borderline size for patient's age. Clinically correlate to exclude biliary obstruction. Suspect fatty infiltration of the liver. Cholelithiasis No evidence of cholecystitis, obtain HIDA scan, diabetes and advanced per GI Transaminitis MRCP does not show any choledocholithiasis, diet advanced, liver function tests trending down T2DM (type 2 diabetes mellitus), uncontrolled Accu-Cheks before meals and at bedtime and coverage A1c was 9.2 Hypertension Continue meds Hyperlipidemia Hold statins for now DVT prophylaxis Lovenox started GI prophylaxis initiated History Interval history: Review of systems Constitutional: No fevers, no malaise, no joint pains CVS: No chest pain, no orthopnea, no dyspnea on exertion, no pedal edema GI: No abdominal pain at present, but notes that he has abdominal pain in his mid upper and right upper abdomen that comes and goes, no diarrhea, no vomiting , no constipation Respiratory: No shortness of breath, no wheezing, no coughing Hospitalist Physical - Physical exam Narrative exam: General.: Appears well, no distress, nontoxic HEENT: Moist mucous membranes, extraocular muscles intact, no lymphadenopathy Neck: supple Cardiac: S1-S2 heard Lungs: clear to auscultation bilaterally Abdomen: soft , right upper quadrant tender, nondistended, bowel sounds positive Extremities: no edema clubbing or cyanosis Skin: no rash or lesions Neurologic: no gross focal deficits Psych: appropriate behavior, appropriate mood, corporative, judgment intact - Constitutional Vitals: Temp Pulse Resp BP Pulse Ox 98.5 F 53 L 16 110/72 96 10/31/17 11:40 10/31/17 11:40 10/31/17 11:40 10/31/17 11:40 10/31/17 11:40 General appearance: Present: well-nourished. Absent: mild distress Results - Labs CBC & Chem 7: 10/31/17 05:27 10/31/17 05:27 Labs: Laboratory Last Values WBC 6.3 K/mm3 (4.5-11.0) 10/31/17 05:27 RBC 4.46 M/mm3 (3.65-5.03) 10/31/17 05:27 Hgb 13.8 gm/dl (11.8-15.2) 10/31/17 05:27 Hct 39.2 % (35.5-45.6) 10/31/17 05:27 MCV 88 fl (84-94) 10/31/17 05:27 MCH 31 pg (28-32) 10/31/17 05:27 MCHC 35 % (32-34) H 10/31/17 05:27 RDW 13.7 % (13.2-15.2) 10/31/17 05:27 Plt Count 169 K/mm3 (140-440) 10/31/17 05:27 Lymph % (Auto) 23.2 % (13.4-35.0) 10/30/17 07:25 [place] % (Auto) 7.6 % (0.0-7.3) H 10/30/17 07:25 Eos % (Auto) 0.3 % (0.0-4.3) 10/30/17 07:25 Baso % (Auto) 0.3 % (0.0-1.8) 10/30/17 07:25 Lymph # 1.5 K/mm3 (1.2-5.4) 10/30/17 07:25 [place] # 0.5 K/mm3 (0.0-0.8) 10/30/17 07:25 Eos # 0.0 K/mm3 (0.0-0.4) 10/30/17 07:25 Baso # 0.0 K/mm3 (0.0-0.1) 10/30/17 07:25 Seg Neutrophils % 68.6 % (40.0-70.0) 10/30/17 07:25 Seg Neutrophils # 4.4 K/mm3 (1.8-7.7) 10/30/17 07:25 PT 14.3 Sec. (12.2-14.9) 10/31/17 05:27 INR 1.05 (0.87-1.13) 10/31/17 05:27 APTT 26.1 Sec. (24.2-36.6) 10/29/17 15:16 Sodium 140 mmol/L (137-145) 10/31/17 05:27 Potassium 3.3 mmol/L (3.6-5.0) L 10/31/17 05:27 Chloride 106.2 mmol/L (98-107) 10/31/17 05:27 Carbon Dioxide 24 mmol/L (22-30) 10/31/17 05:27 Anion Gap 13 mmol/L 10/31/17 05:27 BUN 8 mg/dL (9-20) L 10/31/17 05:27 Creatinine 0.6 mg/dL (0.8-1.5) L 10/31/17 05:27 Estimated GFR > 60 ml/min 10/31/17 05:27 BUN/Creatinine Ratio 13 % 10/31/17 05:27 Glucose 170 mg/dL (75-100) H 10/31/17 05:27 POC Glucose 231 (70-105) H 10/31/17 11:37 Hemoglobin A1c 9.2 % (4-6) H 10/30/17 07:25 Calcium 8.3 mg/dL (8.4-10.2) L 10/31/17 05:27 Iron 92 ug/dL (49-181) 10/31/17 05:27 TIBC 236 mcg/dL (250-450) L 10/31/17 05:27 Ferritin 774.0 ng/mL (13.0-400.0) H 10/31/17 05:27 Total Bilirubin 6.00 mg/dL (0.1-1.2) H 10/31/17 05:27 AST 112 units/L (5-40) H 10/31/17 05:27 ALT 270 units/L (7-56) H 10/31/17 05:27 Alkaline Phosphatase 117 units/L (35-129) 10/31/17 05:27 Troponin T < 0.010 ng/mL (0.00-0.029) 10/29/17 12:07 Total Protein 6.1 g/dL (6.3-8.2) L 10/31/17 05:27 Albumin 3.5 g/dL (3.9-5) L 10/31/17 05:27 Albumin/Globulin Ratio 1.3 % 10/31/17 05:27 Lipase 18 units/L (13-60) 10/29/17 12:07 Urine Color Janis (Yellow) 10/30/17 08:48 Urine Turbidity Clear (Clear) 10/30/17 08:48 Urine pH 5.0 (5.0-7.0) 10/30/17 08:48 Ur Specific [place] 1.019 (1.003-1.030) 10/30/17 08:48 Urine Protein <15 mg/dl mg/dL (Negative) 10/30/17 08:48 Urine Glucose (UA) 150 mg/dL (Negative) 10/30/17 08:48 Urine Ketones Tr mg/dL (Negative) 10/30/17 08:48 Urine Blood Neg (Negative) 10/30/17 08:48 Urine Nitrite Neg (Negative) 10/30/17 08:48 Urine Bilirubin Neg (Negative) 10/30/17 08:48 Urine Urobilinogen < 2.0 mg/dL (<2.0) 10/30/17 08:48 Ur Leukocyte Esterase Neg (Negative) 10/30/17 08:48 Urine WBC (Auto) 1.0 /HPF (0.0-6.0) 10/30/17 08:48 Urine RBC (Auto) < 1.0 /HPF (0.0-6.0) 10/30/17 08:48 U Epithel Cells (Auto) < 1.0 /HPF (0-13.0) 10/30/17 08:48 Urine Mucus Few /HPF 10/30/17 08:48 Hep Bs Antigen Non-reactive (Negative) 10/30/17 17:09 Hep B Core IgM Ab Non-reactive (NonReactive) 10/30/17 17:09 Hepatitis C Antibody Non-reactive (NonReactive) 10/30/17 17:09
[2017-10-31] MEDS: LOVENOX SUB-Q SCH (21:53)
[2017-10-31] MEDS: PEPCID PO SCH (21:53)
[2017-11-01] MEDS: HumaLOG SUB-Q SCH ×3 (01:01→12:00)
[2017-11-01 06:16] LABS: Basophils % (Auto) 0.3 % (0.0-1.8); Eosinophils # (Auto) 0.1 K/mm3 (0.0-0.4); Eosinophils % (Auto) 1.9 % (0.0-4.3); Hematocrit 41.1 % (35.5-45.6); Hemoglobin 14.4 gm/dl (11.8-15.2); Lymphocytes # (Auto) 2.7 K/mm3 (1.2-5.4); Lymphocytes % (Auto) 40.3 % (13.4-35.0); Mean Corpuscular HGB Conc 35 % (32-34); Mean Corpuscular Hemoglobin 31 pg (28-32); Mean Corpuscular Volume 88 fl (84-94); Monocytes # (Auto) 0.4 K/mm3 (0.0-0.8); Monocytes % (Auto) 6.6 % (0.0-7.3); Platelet Count 184 K/mm3 (140-440); Red Blood Count 4.65 M/mm3 (3.65-5.03); Red Cell Distribution Width 13.6 % (13.2-15.2)
[2017-11-01] MEDS: ZOSYN/NS 4.5GM/100ML 4.5 GM/100 ML VIAL IV SCH ×2 (06:26→14:56)
[2017-11-01 06:29] LABS: Alanine Aminotransferase 204 units/L (7-56); Albumin 3.6 g/dL (3.9-5); BUN/Creatinine Ratio 10; Blood Urea Nitrogen 6 mg/dL (9-20); Calcium 8.4 mg/dL (8.4-10.2); Hemolysis Index 3
--- NOTE | 2017-11-01 08:05 | Progress Note ---
Assessment and Plan Pt feeling well without compl. madhu diet Abd soft, non tender LFT's & T [place] down ( consistent with passed stone ) for HIDA today though clinically no signs of acute GB surgically stable Selected Entries 11/01/17 06:05 Temperature 98.1 F Pulse Rate 65 Respiratory 18 Rate Blood Pressure 136/80 Laboratory Tests 10/31/17 11/01/17 11/01/17 05:27 05:43 05:43 WBC 6.6 Hgb 14.4 Hct 41.1 Total Bilirubin 6.00 H 2.80 H AST 112 H 47 H ALT 270 H 204 H Alkaline Phosphatase 117 130 H Objective Vital Signs - 12hr 10/31/17 11/01/17 23:49 06:05 Temperature 98.0 F 98.1 F Pulse Rate 59 L 65 Respiratory 16 18 Rate Blood Pressure 124/75 136/80 O2 Sat by Pulse 94 95 Oximetry - Labs 11/01/17 05:43 11/01/17 05:43 Diabetes panel 11/01/17 Range/Units 05:43 Sodium 139 (137-145) mmol/L Potassium 3.4 L (3.6-5.0) mmol/L Chloride 101.4 (98-107) mmol/L Carbon Dioxide 24 (22-30) mmol/L BUN 6 L (9-20) mg/dL Creatinine 0.6 L (0.8-1.5) mg/dL Glucose 179 H (75-100) mg/dL Calcium 8.4 (8.4-10.2) mg/dL AST 47 H (5-40) units/L ALT 204 H (7-56) units/L Alkaline Phosphatase 130 H (35-129) units/L Total Protein 6.7 (6.3-8.2) g/dL Albumin 3.6 L (3.9-5) g/dL Calcium panel 11/01/17 Range/Units 05:43 Calcium 8.4 (8.4-10.2) mg/dL Albumin 3.6 L (3.9-5) g/dL Pituitary panel 11/01/17 Range/Units 05:43 Sodium 139 (137-145) mmol/L Potassium 3.4 L (3.6-5.0) mmol/L Chloride 101.4 (98-107) mmol/L Carbon Dioxide 24 (22-30) mmol/L BUN 6 L (9-20) mg/dL Creatinine 0.6 L (0.8-1.5) mg/dL Glucose 179 H (75-100) mg/dL Calcium 8.4 (8.4-10.2) mg/dL Adrenal panel 11/01/17 Range/Units 05:43 Sodium 139 (137-145) mmol/L Potassium 3.4 L (3.6-5.0) mmol/L Chloride 101.4 (98-107) mmol/L Carbon Dioxide 24 (22-30) mmol/L BUN 6 L (9-20) mg/dL Creatinine 0.6 L (0.8-1.5) mg/dL Glucose 179 H (75-100) mg/dL Calcium 8.4 (8.4-10.2) mg/dL Total Bilirubin 2.80 H (0.1-1.2) mg/dL AST 47 H (5-40) units/L ALT 204 H (7-56) units/L Alkaline Phosphatase 130 H (35-129) units/L Total Protein 6.7 (6.3-8.2) g/dL Albumin 3.6 L (3.9-5) g/dL
[2017-11-01] MEDS: PEPCID PO SCH (10:00)
[2017-11-01] MEDS: SODIUM CHLORIDE FLUSH SYRINGE 10 ML IV SCH (10:00)
[2017-11-01] MEDS: NACL 0.9% 1000 ML 1,000 ML IV SCH (11:10)
--- NOTE | 2017-11-01 13:31 | Nuclear Medicine Report ---
HEPATOBILIARY SCAN: History: Abdominal pain. Following the injection of the radionuclide, serial scanning was obtained over the right upper quadrant. Initial imaging of the liver demonstrates a relatively normal activity pattern. Progressive concentration of the radionuclide in the bile ducts, with filling of both the gallbladder and small bowel, is identified within a normal time period. IMPRESSION: Normal biliary system.
--- NOTE | 2017-11-01 13:38 | Gastroenterology Progress Note ---
Assessment and Plan 1.abd pain 2.N/V 3.elevated LFTs (T.angelo rising) -afebrile -WBC WNL -hepatitis panel negative -autoimmune markers pending -LFTs trending down (T.angelo now 2.80) -abd US- gallstones and fatty infiltration of liver -MRCP- gallstones (no cholecystitis or choledocholithiasis) and mild to moderate hepatic steatosis (no cirrhosis) -HIDA negative -etiology- likely 2/2 passed stone with underlying intrinsic liver disease ([place] ?, etc.) -no plans for ERCP -surgery following for possible CCY -clinically, patient is feeling much better w/ abd pain resolved. No N/V. Tolerating diet. -continue to trend labs, empiric antibiotics, and supportive care -no further GI recommendations at this time -patient okay to be d/c per GI standpoint with clinic follow up in 3-4 weeks -will sign off, please call if needed Subjective Date of service: 11/01/17 Principal diagnosis: elevated LFTs (rising T.angelo) Interval history: Patient w/o acute distress or events overnight. Reports abd pain resolved. No N/ V. Tolerating diet. Objective - Constitutional Vitals: Temp Pulse Resp BP Pulse Ox 98.1 F 65 18 136/80 95 11/01/17 06:05 11/01/17 08:34 11/01/17 08:34 11/01/17 06:05 11/01/17 06:05 General appearance: no acute distress, obese - Respiratory Respiratory: bilateral: CTA - Cardiovascular Rhythm: regular Heart Sounds: Present: S1 & S2 - Gastrointestinal General gastrointestinal: Present: soft, non-tender, non-distended, normal bowel sounds - Neurologic Neurological: alert and oriented x3 - Labs CBC & Chem 7: 11/01/17 05:43 11/01/17 05:43 Labs: Laboratory Results - last 24 hr 10/31/17 10/31/17 11/01/17 16:49 23:48 05:43 WBC 6.6 RBC 4.65 Hgb 14.4 Hct 41.1 MCV 88 MCH 31 MCHC 35 H RDW 13.6 Plt Count 184 Lymph % (Auto) 40.3 H [place] % (Auto) 6.6 Eos % (Auto) 1.9 Baso % (Auto) 0.3 Lymph # 2.7 [place] # 0.4 Eos # 0.1 Baso # 0.0 Seg Neutrophils % 50.9 Seg Neutrophils # 3.4 Sodium Potassium Chloride Carbon Dioxide Anion Gap BUN Creatinine Estimated GFR BUN/Creatinine Ratio Glucose POC Glucose 178 H 206 H Calcium Total Bilirubin AST ALT Alkaline Phosphatase Total Protein Albumin Albumin/Globulin Ratio 11/01/17 11/01/17 11/01/17 05:43 06:04 07:47 WBC RBC Hgb Hct MCV MCH MCHC RDW Plt Count Lymph % (Auto) [place] % (Auto) Eos % (Auto) Baso % (Auto) Lymph # [place] # Eos # Baso # Seg Neutrophils % Seg Neutrophils # Sodium 139 Potassium 3.4 L Chloride 101.4 Carbon Dioxide 24 Anion Gap 17 BUN 6 L Creatinine 0.6 L Estimated GFR > 60 BUN/Creatinine Ratio 10 Glucose 179 H POC Glucose 180 H 176 H Calcium 8.4 Total Bilirubin 2.80 H AST 47 H ALT 204 H Alkaline Phosphatase 130 H Total Protein 6.7 Albumin 3.6 L Albumin/Globulin Ratio 1.2
[2017-11-01] MEDS ORDERED: HumaLOG SUB-Q SCH (17:00)
--- NOTE | 2017-11-01 17:20 | Discharge Summary ---
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
[2017-11-01 18:17] VITALS: BP 134/83
[2017-11-01] MEDS ORDERED: LANTUS SUB-Q SCH (22:00)
[2017-11-02 08:31] LABS: Hepatitis A Antibody IgM NonReactive (NonReactive)
[2017-11-03 22:46] LABS: ANA Screen, IFA Negative (Negative)
== END 2017-11-01 20:15 | disposition home or self-care (01) | DRG 446 ==
LOC: ED 11:16 → 3A 16:01
PROVIDERS: ADMIT Internal Medicine; ATTEND Internal Medicine
PROC: 3E0234Z Introduction of Serum, Toxoid and Vaccine into Muscle, Percutaneous Approach (ICD-10-PCS; principal; 2017-10-30)
DX: K80.20 Calculus of gallbladder without cholecystitis without obstruction (principal); I10 Essential (primary) hypertension; R07.89 Other chest pain; E66.9 Obesity, unspecified; E78.2 Mixed hyperlipidemia; K76.0 Fatty (change of) liver, not elsewhere classified; K76.9 Liver disease, unspecified; Z23 Encounter for immunization; Z68.37 Body mass index [BMI] 37.0-37.9, adult; Z82.49 Family history of ischemic heart disease and other diseases of the circulatory system; Z79.82 Long term (current) use of aspirin; Z79.899 Other long term (current) drug therapy; Z79.84 Long term (current) use of oral hypoglycemic drugs; E11.65 Type 2 diabetes mellitus with hyperglycemia
CPT/HCPCS: 36415; 74181; 76700; 78226; 80053; 80074; 81001; 82728; 82962; 83036; 83516; 83520; 83550; 83690; 84484; 85025; 85027; 85610; 85730; 86038; 90732; 93005; 93010; 96360; 96361; 96372; A9537; J0500; J1650; J1815; J1885; J1956; J2543; J7030; Q0162

== ENCOUNTER 2017-12-04 05:57 | Day surgery (SDC) | payer OTHER ==
--- NOTE | 2017-12-01 10:37 | Anesthesia Consultation ---
Anesthesia Consult and Med Hx Date of service: 12/01/17 - Airway Anesthetic Teeth Evaluation: Poor ROM Head & Neck: Adequate Mental/Hyoid Distance: Adequate Mallampati Class: Class III Intubation Access Assessment: Possibly Difficult - Pulmonary Exam CTA: Yes - Cardiac Exam Cardiac Exam: RRR - Pre-Operative Health Status ASA Pre-Surgery Classification: ASA3 Proposed Anesthetic Plan: General (HTN, DM, poor dention, hospitalized approx 1 month ago for chest pain, diagnosed with cholelithiasis, karel cardiac work up per pt and patients family) - Pulmonary Hx Smoking: No (pt denies smoking hx) Hx Asthma: No COPD: No Hx Pneumonia: No - Cardiovascular System Hx Hypertension: Yes - Endocrine Hx End Stage Renal Disease: Yes
[2017-12-01 10:53] LABS: Basophils % (Auto) 0.3 % (0.0-1.8); Eosinophils # (Auto) 0.1 K/mm3 (0.0-0.4); Eosinophils % (Auto) 1.5 % (0.0-4.3); Hematocrit 43.6 % (35.5-45.6); Hemoglobin 15.4 gm/dl (11.8-15.2); Lymphocytes # (Auto) 2.7 K/mm3 (1.2-5.4); Lymphocytes % (Auto) 37.4 % (13.4-35.0); Mean Corpuscular HGB Conc 35 % (32-34); Mean Corpuscular Hemoglobin 30 pg (28-32); Mean Corpuscular Volume 86 fl (84-94); Monocytes # (Auto) 0.4 K/mm3 (0.0-0.8); Monocytes % (Auto) 4.9 % (0.0-7.3); Platelet Count 197 K/mm3 (140-440); Red Blood Count 5.07 M/mm3 (3.65-5.03); Red Cell Distribution Width 13.3 % (13.2-15.2)
[2017-12-01 11:20] LABS: Alanine Aminotransferase 34 units/L (7-56); Albumin 4.5 g/dL (3.9-5); BUN/Creatinine Ratio 19; Blood Urea Nitrogen 13 mg/dL (9-20); Calcium 9.2 mg/dL (8.4-10.2); Hemolysis Index 4
[~2017-12-04 05:57] MED LIST: MARCAINE-EPI 0.5%-1:200,000 INFILTRATI ONE
[2017-12-04] MEDS ORDERED: ANCEF/STERILE WATER 2 GM/20 ML 2 GM/20 ML SYRINGE IV SCH (06:00)
[2017-12-04] MEDS ORDERED: MARCAINE-EPI 0.5%-1:200,000 INFILTRATI ONE (06:53)
[2017-12-04] MEDS ORDERED: DIPRIVAN 10 MG/ML IV ONE (06:57)
[2017-12-04] MEDS ORDERED: SUBLIMAZE ONE (06:59)
[2017-12-04] MEDS ORDERED: ZOFRAN IV PRN (07:05)
[2017-12-04] MEDS ORDERED: DILAUDID IV PRN (07:05)
[2017-12-04] MEDS ORDERED: ZEMURON IV ONE (07:52)
[2017-12-04] MEDS ORDERED: XYLOCAINE MPF 2% ONE (07:52)
[2017-12-04] MEDS ORDERED: QUELICIN ONE (07:52)
[2017-12-04] MEDS ORDERED: BLOXIVERZ ONE (07:53)
[2017-12-04] MEDS ORDERED: ROBINUL ONE (07:53)
[2017-12-04] MEDS ORDERED: ZOFRAN ONE (07:53)
[2017-12-04] MEDS ORDERED: DECADRON ONE (07:53)
[2017-12-04] MEDS ORDERED: ceFAZolin 2 GM in NACL 0.9% 100 ML IV ONE (08:00)
[2017-12-04] MEDS ORDERED: LACTATED RINGERS 1,000 ML IV SCH ×3 (08:00→10:00)
[2017-12-04] MEDS ORDERED: VERSED IV NR (08:00)
[2017-12-04] MEDS ORDERED: DILAUDID ONE (08:09)
--- NOTE | 2017-12-04 08:27 | Discharge Summary ---
Short Stay Discharge Plan Activity: other (observe x 4 hrs then june d/c if stable. ice chips today. cl liq in am. solid low fat diet in 48 hrs. no lifting over 5 lbs x 2 wks. keep dressings dry x 5 days) Weight Bearing Status: Partial Weight Bearing Diet: other Wound: keep clean and dry Additional Instructions: aleve I po q 6-8 hrs prn for breakthrough pain Follow up with: CLIFTON ARCINIEGA MD [Staff Physician] - 7 Days
--- NOTE | 2017-12-04 08:47 | Operative Report ---
PREOPERATIVE DIAGNOSIS: Gallbladder disease. POSTOPERATIVE DIAGNOSIS: Gallbladder disease. PROCEDURE: Laparoscopic cholecystectomy. SURGEON: Lei Dietrich MD ANESTHESIA: General. ESTIMATED BLOOD LOSS: Minimal. DRAINS: No drains. COMPLICATIONS: None. DESCRIPTION OF PROCEDURE: The patient was taken to the operating room, prepped and draped in usual sterile fashion. Veress needle was inserted and CO2 insufflation begun. A 5 mm trocar was then inserted and camera inserted. All other trocars were inserted under direct visualization. Gallbladder was then grasped at the fundus and retracted towards the right subphrenic space. A fair amount of omental adhesions was noted on the undersurface of the gallbladder. These were bluntly dissected free. The infundibulum was then identified and also retracted. Dissection site was then carried out along the Calot's triangle. The cystic duct and artery were delineated in their entire course. Both were then doubly clipped and transected. Hook electrocautery was used to dissect the gallbladder from the overlying liver bed. Prior to complete removal, the liver bed was inspected for bleeding and noted to be dry. The cystic duct and artery stumps were once again visualized. The clips were noted to be securely in place with no evidence of bleeding or bile leak. Gallbladder was then completely freed and brought out through the subxiphoid port. This area was inspected for bleeding and noted to be dry. The subxiphoid trocar was then gently reinserted. The cystic duct and artery stumps were once again visualized. The clips were noted to be securely in place with no evidence of bleeding or bile leak. All 5 mm ports were removed under direct visualization. No bleeding or oozing noted. The subxiphoid trocar was then used to expel the CO2 and the trocar were removed. The fascia at this site was closed with a [id number] 0 Vicryl suture. The skin at all port sites was closed with subcuticular 4-0 Vicryl. A 0.5% Marcaine was infiltrated over the port site for postoperative pain relief. The patient tolerated the procedure well and left OR in stable condition. [facility]# [id number] REBECCA/EDGARDO
[2017-12-04] MEDS ORDERED: NORCO 5/325 PO PRN (09:28)
--- NOTE | 2017-12-04 11:26 | Post Anesthesia Evaluation ---
- Post Anesthesia Evaluation Patient Participated: Yes Airway Patent: Yes Stable Respiratory Function: Yes Nausea/Vomiting: No Temp > 96.8F: Yes Pain Manageable: Yes Adequeate Hydration: Yes Anesthesia Complications: No
--- NOTE | 2017-12-04 11:26 | Anesthesia Day of Surgery ---
Anesthesia Day of Surgery - Day of Surgery Patient Examined: Yes Patient H&P Reviewed: Yes Patient is NPO: Yes
[2017-12-04] MEDS ORDERED: NORCO 5/325 PO ONE (11:49)
[2017-12-04 14:37] VITALS: BP 126/80
== END 2017-12-04 14:05 | disposition home or self-care (01) ==
LOC: OR 05:57
PROVIDERS: ATTEND Surgery
DX: K80.10 Calculus of gallbladder with chronic cholecystitis without obstruction (principal); K21.9 Gastro-esophageal reflux disease without esophagitis; E11.22 Type 2 diabetes mellitus with diabetic chronic kidney disease; I12.0 Hypertensive chronic kidney disease with stage 5 chronic kidney disease or end stage renal disease; N18.6 End stage renal disease; E66.9 Obesity, unspecified; Z68.36 Body mass index [BMI] 36.0-36.9, adult; Z79.84 Long term (current) use of oral hypoglycemic drugs; Z79.899 Other long term (current) drug therapy; Z99.2 Dependence on renal dialysis; Z98.890 Other specified postprocedural states
CPT/HCPCS: 36415; 47562; 80053; 82150; 82962; 85025; 88304; J0330; J0690; J1100; J1170; J2405; J2704; J2710; J3010; J7120

== ENCOUNTER 2021-06-06 16:44 | Emergency (ER) | payer OTHER ==
[2021-06-06 17:50] LABS: Bilirubin,Urine NEG (Negative); Blood,Urine NEG (Negative); Color,Urine Yellow (Yellow); Protein,Urine <15 mg/dL mg/dL (Negative); Urobilinogen,Urine < 2.0 mg/dL (<2.0)
[2021-06-06 17:58] LABS: Alanine Aminotransferase 22 units/L (7-56); Albumin 4.6 g/dL (3.9-5); BUN/Creatinine Ratio 16; Blood Urea Nitrogen 13 mg/dL (9-20); Calcium 9.9 mg/dL (8.4-10.2); Hemolysis Index 12
[2021-06-06 18:08] LABS: Basophils % (Auto) 0.3 % (0.0-1.8); Eosinophils # (Auto) 0.1 K/mm3 (0.0-0.4); Eosinophils % (Auto) 1.6 % (0.0-4.3); Hematocrit 45.2 % (35.5-45.6); Lymphocytes # (Auto) 3.2 K/mm3 (1.2-5.4); Lymphocytes % (Auto) 38.9 % (13.4-35.0); Mean Corpuscular HGB Conc 35 % (32-34); Mean Corpuscular Volume 86 fl (84-94); Monocytes # (Auto) 0.5 K/mm3 (0.0-0.8); Monocytes % (Auto) 6.6 % (0.0-7.3); Platelet Count 241 K/mm3 (140-440); Red Blood Count 5.25 M/mm3 (3.65-5.03); Red Cell Distribution Width 13.6 % (13.2-15.2)
--- NOTE | 2021-06-06 18:17 | Emergency Department Report ---
ED Abdominal Pain HPI - General Chief Complaint: Abdominal Pain Stated Complaint: PELVIC PAIN Time Seen by Provider: 06/06/21 18:10 Source: patient Mode of arrival: Ambulatory Limitations: Language Barrier - History of Present Illness Initial Comments: Patient is 56 years old male with history of diabetes. Patient presented to the ER complaining of lower abdominal pain for the last 5 days. Patient described the pain as sharp with no radiation. Patient stated that he also has been having increased urinary frequency urgency and hesitancy. He denied any hematuria. Patient also denied any fever or chills. No nausea or vomiting. MD Complaint: abdominal pain -: days(s) (5) Location: suprapubic Migration to: no migration Severity scale (0 -10): 8 Quality: sharp Associated Symptoms: denies other symptoms - Related Data Home Medications Medication Instructions Recorded Confirmed Last Taken hydroCHLOROthiazide [HCTZ] 12.5 mg PO DAILY 12/01/17 06/06/21 06/05/21 Detemir (Nf) [Levemir (Nf)] 30 units SUB-Q DAILY 12/04/17 06/06/21 06/05/21 Previous Rx's Medication Instructions Recorded Last Taken Type Metformin HCl [metFORMIN] 1,000 mg PO BID #40 tablet 04/12/17 06/05/21 Rx Allergies Allergy/AdvReac Type Severity Reaction Status Date / Time No Known Allergies Allergy Verified 12/01/17 10:45 ED Review of Systems ROS: Stated complaint: PELVIC PAIN Other details as noted in HPI Comment: All other systems reviewed and negative Constitutional: denies: chills, fever Respiratory: denies: cough, shortness of breath Cardiovascular: denies: chest pain, palpitations Gastrointestinal: abdominal pain. denies: nausea, vomiting, diarrhea, constipation, hematemesis, hematochezia Genitourinary: urgency, dysuria, frequency. denies: discharge, testicular pain, testicular mass Musculoskeletal: denies: back pain Neurological: denies: headache, weakness, numbness, paresthesias, confusion ED Past Medical Hx - Past Medical History Previous Medical History?: Yes Hx Hypertension: Yes (2011) Hx Congestive Heart Failure: No Hx Diabetes: Yes (2014) Hx Asthma: No Hx COPD: No Hx HIV: No Additional medical history: Abd pain with gastritis - Surgical History Past Surgical History?: Yes Additional Surgical History: left upper arm surgery - Social History Smoking Status: Never Smoker - Medications Home Medications: Home Medications Medication Instructions Recorded Confirmed Last Taken Type Metformin HCl [metFORMIN] 1,000 mg PO BID #40 tablet 04/12/17 06/06/21 06/05/21 Rx hydroCHLOROthiazide [HCTZ] 12.5 mg PO DAILY 12/01/17 06/06/21 06/05/21 History Detemir (Nf) [Levemir (Nf)] 30 units SUB-Q DAILY 12/04/17 06/06/21 06/05/21 History ED Physical Exam - General Limitations: Language Barrier General appearance: alert, in no apparent distress - Head Head exam: Present: atraumatic, normocephalic, normal inspection - Eye Eye exam: Present: normal appearance - ENT ENT exam: Present: normal exam, normal orophraynx, mucous membranes moist - Neck Neck exam: Present: normal inspection, full ROM. Absent: tenderness, meningismus - Respiratory Respiratory exam: Present: normal lung sounds bilaterally - Cardiovascular Cardiovascular Exam: Present: regular rate, normal rhythm, normal heart sounds - GI/Abdominal GI/Abdominal exam: Present: soft, normal bowel sounds. Absent: distended, tenderness, guarding, rebound, rigid, organomegaly, mass, bruit, pulsatile mass, hernia - Extremities Exam Extremities exam: Present: normal inspection, full ROM, normal capillary refill. Absent: tenderness, pedal edema, joint swelling, calf tenderness - Back Exam Back exam: Present: normal inspection, full ROM. Absent: CVA tenderness (R), CVA tenderness (L) - Neurological Exam Neurological exam: Present: alert, oriented X3, CN II-XII intact, normal gait, reflexes normal. Absent: motor sensory deficit - Psychiatric Psychiatric exam: Present: normal mood - Skin Skin exam: Present: warm, intact, normal color ED Course Vital Signs 06/06/21 06/06/21 16:58 17:54 Temperature 98.2 F Pulse Rate 88 Respiratory 20 Rate Blood Pressure 124/98 [Right] O2 Sat by Pulse 97 100 Oximetry ED Medical Decision Making - Lab Data Result diagrams: 06/06/21 17:07 06/06/21 17:07 - EKG Data -: EKG Interpreted by Me - Radiology Data Radiology results: report reviewed - Medical Decision Making Patient is 56 years old male with history of diabetes. Patient presented to the ER complaining of lower abdominal pain for the last 5 days. Patient described the pain as sharp with no radiation. Patient stated that he also has been having increased urinary frequency urgency and hesitancy. He denied any hematuria. Patient also denied any fever or chills. No nausea or vomiting. Labs reviewed and is unremarkable. CT abdomen and pelvis showed a right punctate kidney stone. Patient received Toradol for pain. Patient stated that he is feeling much better. Patient given prescription for toradol. I also added Flomax for the patient. Patient advised to follow-up with urologist in the next 2 to 3 days and to return to the ER if he develop any symptoms. Critical care attestation.: If time is entered above; I have spent that time in minutes in the direct care of this critically ill patient, excluding procedure time. ED Disposition Clinical Impression: Kidney stone on right side Disposition: 01 HOME / SELF CARE / HOMELESS Is pt being admited?: No Condition: Stable Instructions: Kidney Stones, [id number] Referrals: TESS LOGAN MD [Staff Physician] - 3-5 Days
--- NOTE | 2021-06-06 19:36 | Cat Scan Report ---
CT ABDOMEN AND PELVIS WITHOUT CONTRAST INDICATION / CLINICAL INFORMATION: ABDOMINAL PAIN. TECHNIQUE: Axial CT images were obtained through the abdomen and pelvis without IV contrast. All CT scans at this location are performed using CT dose reduction for ALARA by means of automated exposure control. COMPARISON: None available. FINDINGS: LOWER CHEST: There is bibasilar volume loss. LIVER: Mild hepatomegaly with hepatic steatosis. GALLBLADDER/BILIARY TREE: Cholecystectomy. PANCREAS: No significant abnormality SPLEEN: No significant abnormality ADRENALS: No significant abnormality RIGHT KIDNEY / URETER: Punctate nonobstructive stones in the right kidney. No urolithiasis or hydrone phrosis. LEFT KIDNEY / URETER: No significant abnormality URINARY BLADDER: No significant abnormality REPRODUCTIVE ORGANS: Prostate is enlarged. STOMACH / BOWEL: Small bowel is normal in caliber. The colon is unremarkable. The appendix is normal in caliber. LYMPH NODES: No significant adenopathy. VASCULATURE: No significant abnormality. OTHER: No free air, free fluid, or focal fluid collection is identified. SKELETAL SYSTEM: Degenerative changes of the spine. No acute osseous findings. IMPRESSION: 1. No acute abnormality of the abdomen or pelvis. 2. Punctate nonobstructive stones in the right kidney. No urolithiasis or hydronephrosis. 3. Hepatic steatosis. Signer Name: Yazan Russell MD Signed: 06/06/2021 7:32 PM Workstation Name: [id number]
[2021-06-06] MEDS ORDERED: KETOROLAC 60 MG/2 ML INJ IM ONE (20:24)
[2021-06-06 21:31] VITALS: BP 123/64
== END 2021-06-07 02:09 | disposition home or self-care (01) ==
LOC: ED 16:44
DX: N20.0 Calculus of kidney (principal); I10 Essential (primary) hypertension; E11.9 Type 2 diabetes mellitus without complications; Z79.899 Other long term (current) drug therapy
CPT/HCPCS: 36415; 74176; 80053; 81001; 83690; 85025; 96372; 99284; J1885

== ENCOUNTER 2021-07-05 10:45 | Emergency (ER) | payer OTHER ==
[2021-07-05 12:30] VITALS: BP 127/77
--- NOTE | 2021-07-05 15:38 | Emergency Department Report ---
ED General Adult HPI - General Chief complaint: Hyperglycemia Stated complaint: HIGH BLOOD SUGAR Source: patient Mode of arrival: Ambulatory Limitations: No Limitations - History of Present Illness Initial comments: 56-year-old male with presents to the ED complaining blood glucose 303 this a.m.. Patient states that his blood sugar has been running high in the a.m. and he do not like his current PCP. Patient states that he would like to have a new PCP. Patient denies any complaint at present time. Patient is alert and oriented x3. No acute distress noted no ill appearance noted. Patient denies any fever ,chills ,nausea or vomiting present time. Patient denies any chest pain shortness of breath at present time. -: This morning Severity scale (0 -10): 0 Associated Symptoms: denies other symptoms Treatments Prior to Arrival: none - Related Data Home Medications Medication Instructions Recorded Confirmed Last Taken hydroCHLOROthiazide [HCTZ] 12.5 mg PO DAILY 12/01/17 06/06/21 06/05/21 Detemir (Nf) [Levemir (Nf)] 30 units SUB-Q DAILY 12/04/17 06/06/21 06/05/21 Previous Rx's Medication Instructions Recorded Last Taken Type Metformin HCl [metFORMIN] 1,000 mg PO BID #40 tablet 04/12/17 06/05/21 Rx Ketorolac [Toradol] 10 mg PO Q6H PRN #20 tablet 06/06/21 Unknown Rx Tamsulosin [Flomax] 0.4 mg PO QDAY #14 cap 06/06/21 Unknown Rx Allergies Allergy/AdvReac Type Severity Reaction Status Date / Time No Known Allergies Allergy Verified 12/01/17 10:45 ED Review of Systems ROS: Stated complaint: HIGH BLOOD SUGAR Other details as noted in HPI Constitutional: denies: chills, fever Eyes: denies: eye pain, eye discharge, vision change ENT: denies: ear pain, throat pain Respiratory: denies: cough, shortness of breath, wheezing Cardiovascular: denies: chest pain, palpitations Endocrine: no symptoms reported Gastrointestinal: denies: abdominal pain, nausea, diarrhea Genitourinary: denies: urgency, dysuria Musculoskeletal: denies: back pain, joint swelling, arthralgia Skin: denies: rash, lesions Neurological: denies: headache, weakness, paresthesias Psychiatric: denies: anxiety, depression Hematological/Lymphatic: denies: easy bleeding, easy bruising ED Past Medical Hx - Past Medical History Previous Medical History?: Yes Hx Hypertension: Yes (2011) Hx Congestive Heart Failure: No Hx Diabetes: Yes (2014) Hx Asthma: No Hx COPD: No Hx HIV: No Additional medical history: Abd pain with gastritis - Surgical History Past Surgical History?: Yes Additional Surgical History: left upper arm surgery - Social History Smoking Status: Never Smoker - Medications Home Medications: Home Medications Medication Instructions Recorded Confirmed Last Taken Type Metformin HCl [metFORMIN] 1,000 mg PO BID #40 tablet 04/12/17 06/06/21 06/05/21 Rx hydroCHLOROthiazide [HCTZ] 12.5 mg PO DAILY 12/01/17 06/06/21 06/05/21 History Detemir (Nf) [Levemir (Nf)] 30 units SUB-Q DAILY 12/04/17 06/06/21 06/05/21 History Ketorolac [Toradol] 10 mg PO Q6H PRN #20 tablet 06/06/21 Unknown Rx Tamsulosin [Flomax] 0.4 mg PO QDAY #14 cap 06/06/21 Unknown Rx ED Physical Exam - General Limitations: No Limitations General appearance: alert, in no apparent distress - Head Head exam: Present: atraumatic, normocephalic - Eye Eye exam: Present: normal appearance - ENT ENT exam: Present: mucous membranes moist - Neck Neck exam: Present: normal inspection - Respiratory Respiratory exam: Present: normal lung sounds bilaterally. Absent: respiratory distress - Cardiovascular Cardiovascular Exam: Present: regular rate, normal rhythm. Absent: systolic murmur, diastolic murmur, rubs, gallop - GI/Abdominal GI/Abdominal exam: Present: soft, normal bowel sounds - Rectal Rectal exam: Present: deferred - Extremities Exam Extremities exam: Present: normal inspection - Back Exam Back exam: Present: normal inspection - Neurological Exam Neurological exam: Present: alert, oriented X3 - Psychiatric Psychiatric exam: Present: normal affect, normal mood - Skin Skin exam: Present: warm, dry, intact, normal color. Absent: rash ED Course Vital Signs 07/05/21 12:26 Temperature 98.3 F Pulse Rate 73 Respiratory 16 Rate Blood Pressure 127/77 [Left] ED Medical Decision Making - Medical Decision Making 56-year-old male with presents to the ED complaining blood glucose 303 this a.m.. Patient states that his blood sugar has been running high in the a.m. and he do not like his current PCP. Patient states that he would like to have a new PCP. Patient denies any complaint at present time. Patient is alert and oriented x3. No acute distress noted no ill appearance noted. Patient denies any fever ,chills ,nausea or vomiting present time. Patient denies any chest pain shortness of breath at present time. Rechecked the patient is resting quietly quietly and comfortable and feeling better. I discussed the results of diagnostic study, my clinical impression and the plan for further treatment with the patient. Patient agrees with plan and discharge at this present time. All question addressed. I have given the patient instruction regarding a diagnosis ,expectation ,follow- up and return precaution. I explained to the patient that emergent condition may arise and to return to the ED for new worsen and any new persisting condition. I have explained the importance of following up with the primary care physician or referral physician listed below has instructed. The patient verbalized understanding of discharge instruction. Critical care attestation.: If time is entered above; I have spent that time in minutes in the direct care of this critically ill patient, excluding procedure time. ED Disposition Clinical Impression: Increased blood glucose Disposition: 01 HOME / SELF CARE / HOMELESS Is pt being admited?: No Does the pt Need Aspirin: No Condition: Stable Instructions: Hyperglycemia, [id number] Additional Instructions: Keep appointment with new primary care doctor Continue to monitor blood glucose Return to the ED for any worsening symptom Referrals: [facility] [Provider Group] - 3-5 Days Time of Disposition: 15:37
== END 2021-07-05 15:37 | disposition home or self-care (01) ==
LOC: ED 10:45
DX: E11.65 Type 2 diabetes mellitus with hyperglycemia (principal); I10 Essential (primary) hypertension; Z98.890 Other specified postprocedural states
CPT/HCPCS: 82962; 99282